=== PATIENT | female | born 1960 | race Hispanic/Latino ===

== ENCOUNTER 2017-04-01 15:12 | Outpatient (CLI) | payer OTHER ==
--- NOTE | 2017-04-02 11:57 | MMO ---
BILATERAL SCREENING MAMMOGRAM: History: Screening. Comparison: 2015, 2014 FINDINGS: This study is interpreted with the assistance of computer aided detection. There are scattered fibroglandular densities. Benign appearing masses in both breasts, similar. Benign calcifications in right breast. No suspicious mass, architectural distortion, or suspicious ca lcifications. IMPRESSION: BIRADS 2 - benign findings. Continued annual mammographic screening recommended. POS: [facility]
== END 2017-04-01 15:13 | disposition home or self-care (01) ==
LOC: SCSMAMMO 15:12
PROVIDERS: ATTEND Obstetrics & Gynecology
DX: Z12.31 Encounter for screening mammogram for malignant neoplasm of breast (principal)
CPT/HCPCS: 77067

== ENCOUNTER 2018-04-27 16:13 | Outpatient (CLI) | payer OTHER | END 2018-04-27 16:14 | disposition home or self-care (01) | LOC: BICMAMMO 16:13 | PROVIDERS: ATTEND Obstetrics & Gynecology | DX: Z12.31 Encounter for screening mammogram for malignant neoplasm of breast (principal) | CPT/HCPCS: 77063; 77067 ==

== ENCOUNTER 2019-03-30 15:00 | Inpatient (IN) | payer OTHER ==
[2019-03-30] MEDS: Morphine 2 MG/ML SYRINGE SLOW IVP PRN ×4 (16:46→22:45)
[2019-03-30 16:52] VITALS: BMI 45.1
--- NOTE | 2019-03-30 18:22 | PRG ---
DATE OF SERVICE: 03/30/2019 This is a 30-minute initial visit note, in which 30 minutes were spent reviewing the imaging record, evaluation, examination of the patient, and formulation of plan. Greater than 50% time was spent in counseling on Nancy Liu. Ms. Liu is a 58-year-old woman with protein-C deficiency, consistent with thrombophilia, she is managed by Dr. Gaffney. She presented with increasing headache over the last week and head CT demonstrates multi-aged subdural hematomas bilaterally with no worrisome mass effect, but also scattered areas of subarachnoid hemorrhage. I would like to get a CT angiogram in the morning. INR is 1.2, which tells me that she perhaps had missed her Coumadin in the last couple days. I would like to make sure she does not have any type of venous thrombosis. This is not likely as that typically presents with venous hypertension and intracerebral flame shaped hemorrhage, which does not appear to be the case here necessarily. We do have to be cautious initiating her Coumadin again and I would prefer to hold off for a week or two and then, perhaps gently escalate her anticoagulation if we need to. We will see what the CTA tomorrow shows. Currently, she is neurologically intact with headache. We will follow up tomorrow. If she is doing well, we will get her to a regular room. Job ID: [id number]
[2019-03-30] MEDS ORDERED: Acetaminophen 325 MG TAB PO PRN (19:14)
[2019-03-30] MEDS ORDERED: Communication Order-Pharmacy FS PRN (19:30)
[2019-03-30] MEDS: Sodium Chloride 0.9% 1,000 ML IV SCH (20:41)
[2019-03-31] MEDS: Morphine 2 MG/ML SYRINGE SLOW IVP PRN ×7 (04:47→23:59)
[2019-03-31] MEDS: Ondansetron PF 4 MG/2 ML Vial IVP PRN ×2 (04:49→21:29)
[2019-03-31] MEDS: HYDROcodone/Acetaminophen 5/325 mg Tablet PO PRN ×3 (05:43→21:07)
[2019-03-31 06:37] LABS: #Eosinphils 0.1 thou/uL (0.0-0.7); #Lymphocytes 1.3 thou/uL (1.20-3.40); #Monocytes 0.4 thou/uL (0.11-0.59); #Neutrophils 4.3 thou/uL (1.40-6.50); %Basophils 0.5 % (0.0-1.0); %Eosinophils 0.9 % (0.0-10.0); %Monocytes 6.9 % (0.0-10.0); %Neutrophils 70.7 % (42.0-75.0); Hemoglobin 12.9 g/dL (12.0-16.0); Mean Corpuscular HGB CONC 33.4 g/dL (32.0-36.0); Mean Corpuscular Hemoglobin 29.6 pg (27.0-31.0); Mean Corpuscular Volume 88.7 fL (78.0-98.0); Mean Platelet Volume 7.8 fL (7.4-10.4); Platelet Count 201 thou/uL (130-400); RBC Distribution Width 13.3 % (11.5-14.5); Red Blood Cell (RBC) Count 4.35 mill/uL (4.20-5.40); White Blood Cell (WBC) Count 6.1 thou/uL (4.8-10.8)
[2019-03-31 06:41] LABS: INR-International Normal Ratio 1.4; PTT 29.1 SEC (22.9-36.1); Prothrombin Time 16.8 SEC (12.0-14.7)
[2019-03-31 06:49] LABS: Anion Gap 11 mmol/L (10-20); BUN (Urea Nitrogen) 8 mg/dL (9.8-20.1); Calc. Creatinine Clearance 200 mL/min (70-130); Calcium 8.2 mg/dL (7.8-10.44); Carbon Dioxide 26 mmol/L (22-29); Chloride 103 mmol/L (98-107); Estimated GFR-MDRD Greater than 90; Glucose 250 mg/dL (70-105); Potassium 3.8 mmol/L (3.5-5.1); Sodium 136 mmol/L (136-145)
[2019-03-31] MEDS: Sodium Chloride 0.9% 1,000 ML IV SCH ×2 (07:32→21:08)
--- NOTE | 2019-03-31 09:12 | CT ---
CTA OF THE HEAD WITHOUT AND WITH CONTRAST: HISTORY: Bilateral subdural hematomas. TECHNIQUE: Multiple contiguous axial images were obtained in a CTA of the head without and with contrast. Three -D sagittal and coronal MIP reformats were performed. FINDINGS: There are bilateral low-density fluid collections along the frontoparietal convexities near the verte x which likely represent subdural hygromas. There is a hyperdense region on the right measuring 5 mm in size which may represent an acute on chronic subdural hematoma. There is no evidence of hydrocep halus or interventricular hemorrhage. No downward herniation or midline shift is seen. No large con fluent infarction is seen. The calvarium and overlying soft tissues are unremarkable. The visualized paranasal sinuses and mast oid air cells are well aerated. The bilateral intracranial internal carotid arteries are normal in caliber without filling defects. These branch into normal-appearing anterior and middle cerebral arteries. There is no evidence of an eurysmal dilatation, focal stenosis, or occlusion in the anterior circulation. The vertebral arteries form a normal-appearing basilar artery. The posterior cerebral arteries and c erebellar arteries are patent, but there is no evidence of focal stenosis, occlusion, or aneurysmal d ilatation of the posterior circulation. The deep venous structures appear patent without evidence of thrombosis. IMPRESSION: 1. No evidence of intracranial vascular abnormality. 2. Bilateral subdural hygromas. There is a small area of hyperdensity on the right which could repr esent an acute on chronic subdural hematoma. POS: [facility]
--- NOTE | 2019-03-31 11:35 | PRG ---
DATE OF SERVICE: 03/31/2019 This is a 15 minutes subsequent visit note, in which 15 minutes were spent reviewing the imaging record, evaluation and examination of the patient, formulation of plan. Greater than 50% time was spent in counseling on Ms. Liu. Ms. Liu is much more pleasant this morning than evidently overnight where she was very confused and somewhat combative. She is in pleasant spirits and our head CT is stable. She is on aspirin and as such we will move her to the floor and begin mobilizing her. I will arrange follow up with a repeat head CT in 1 month in my clinic with her off blood thinners. Job ID: [id number]
[2019-03-31] MEDS ORDERED: traMADol HCl 50 MG TAB PO PRN (13:39)
--- NOTE | 2019-03-31 14:23 | PRG ---
DATE OF SERVICE: 03/31/2019 This is Dom Corcoran PA-C dictating a report for Baltazar Malin MD. A 25-minute subsequent patient evaluation, of which greater than 50% of the exam was spent counseling and coordinating the patient's care, remainder of the exam was spent in review of the patient's medical records and review of appropriate imaging studies. Ms. Liu is hospital day #1, having bilateral chronic subdural hematoma secondary to long-term warfarin use. The patient today continues to have headache. Neurologically, she remains at her baseline. She is oriented to person, place, and time and is able to tell me the definition of a pen. She moves all extremities equally. Review of patient's CTA shows stability of her bilateral chronic subdural hematomas and no indication of any underlying vascular abnormality. At this time, the patient is stable for transfer out of the ICU. We will work on headache management. She likely will be ready for discharge in the next day or two. We will continue to keep her blood pressure systolic under 150 on holding her Coumadin. She takes this for protein C deficiency. Please call with any changes in patient's neurologic status. Otherwise, we will follow. Job ID: [id number]
[2019-04-01] MEDS: HYDROcodone/Acetaminophen 5/325 mg Tablet PO PRN ×3 (03:12→21:39)
[2019-04-01] MEDS: Morphine 2 MG/ML SYRINGE SLOW IVP PRN ×5 (08:45→20:32)
[2019-04-01] MEDS: Ondansetron PF 4 MG/2 ML Vial IVP PRN ×2 (08:45→21:58)
--- NOTE | 2019-04-01 09:33 | CON ---
DATE OF CONSULTATION: 04/01/2019 CONSULTING PHYSICIAN: Dr. Malin (we were contacted by the patient's ). REASON FOR CONSULTATION: Protein C deficiency. HISTORY OF PRESENT ILLNESS: This is a 58-year-old female, who was diagnosed with protein C deficiency about 20 years ago after clotting off a large portion of her small bowel requiring resection. She has been admitted at this time for altered mental status related to subdural hematoma. This did not require evacuation, but she has been advised to stay off Coumadin for at least 2 weeks. Her was concerned the length the time of this require being off Coumadin. PAST MEDICAL HISTORY: Protein C deficiency. PAST SURGICAL HISTORY: Small bowel resection. ALLERGIES: NONE. MEDICATIONS: She takes Coumadin at home. SOCIAL HISTORY: She is an educating nurse. She does not smoke, consume alcohol, or use illicit drugs. REVIEW OF SYSTEMS: Twelve-point review of systems is otherwise negative. PHYSICAL EXAMINATION: VITAL SIGNS: Temperature 98.1, pulse 69, blood pressure 110/49, and O2 saturation 97%. GENERAL: She is awake, alert, in no distress. HEENT: Unremarkable. NECK: No adenopathy or JVD. CHEST: Clear. CARDIAC: S1 and S2. Regular. ABDOMEN: Soft and nontender. EXTREMITIES: No clubbing, cyanosis, or edema. ASSESSMENT: 1. Protein C deficiency. 2. Subdural hematoma. PLAN: Right now anticoagulation is contraindicated and the only alternative measures are the SCDs and early ambulation. Hopefully in a couple of weeks, she can restart the warfarin. Job ID: [id number]
[2019-04-01] MEDS: Sodium Chloride 0.9% 1,000 ML IV SCH (11:03)
--- NOTE | 2019-04-01 15:40 | PRG ---
DATE OF SERVICE: 04/01/2019 This is Dom Corcoran PA-C dictating a report for Baltazar Malin MD. This is a 15-minute subsequent patient evaluation of which greater than 50% of the exam was spent counseling and coordinating the patient's care, remainder of the exam was spent reviewing patient's medical records and formulation of treatment plan. Ms. Liu is hospital day #2, having sustained chronic subdural hematomas bilaterally. The patient is on Coumadin secondary to protein C deficiency. She continues with headache, though she is able to the eat. She has occasional nausea. Headaches are improved today. She follows commands equally in all extremities and is neurologically intact and oriented to person, place, and time. Her hope is to discharge the patient home tomorrow and we will work on setting up an outpatient followup with a noncontrast head CT in two weeks. In the interim, the patient will need to be off Coumadin. Please call with any changes in patient's neurologic status. Otherwise, we will follow up tomorrow. Job ID: [id number]
[2019-04-02] MEDS: Morphine 2 MG/ML SYRINGE SLOW IVP PRN (00:15)
[2019-04-02] MEDS: HYDROcodone/Acetaminophen 5/325 mg Tablet PO PRN (08:32)
--- NOTE | 2019-04-02 10:09 | PRG ---
DATE OF SERVICE: 04/02/2019 Ms. Liu really has no complaints this morning. I have let the nursing team know I would be fine with her going home. Dr. Castro is seeing her as well for her thrombophilia. We will need to be off anticoagulation for the next 2 weeks to allow her acute on chronic subdural hematoma to normalize. I will see her in my clinic with a repeat head CT. She will be dismissed. Job ID: [id number]
[2019-04-02 11:38] VITALS: TEMP 99.1
[2019-04-02 13:41] VITALS: BP 133/76
--- NOTE | 2019-04-05 01:05 | PQF ---
BOBBY RODRIGUEZ JASON MD [id number] [address] [place] [address] [id number] CLINICAL DOCUMENTATION CLARIFICATION FORM: POST DISCHARGE Addendum to original discharge summary date: ____ Late entry note date: __ DATE: 04/05/19 ATTN: Baltazar Romero Please exercise your independent, professional judgment in responding to the clarification form. Clinical indicators are provided on the bottom of this form for your review Please check appropriate box(s): [ ] Acute Toxic Encephalopathy [ ] Acute Metabolic Encephalopathy [ ] Transient Alteration of Awareness [ ] Other diagnosis [ ] Unable to determine In addition, please specify: Present on Admission (POA): [ ] Yes [ ] No [ ] Unable to determine For continuity of documentation, please document condition throughout progress notes and discharge summary. Thank You. CLINICAL INDICATORS - SIGNS / SYMPTOMS / LABS Nursing Assessment 03/30 GCS 15 PN p1 03/30 Dr Malin She presented with increasing headache over the last week and head CT demonstrates multi-aged subdural hematomas bilaterally PN p1 02/28 Dr Malin more pleasant this morning than evidently overnight where she was very confused and somewhat combative Consult p1 Dr Castro She has been admitted at this time for altered mental status related to subdural hematoma RISK FACTORS PN p1 03/30 58 year-old woman PN p1 03/30 Protein-C Deficiency PN p1 03/30 Taking Coumadin at home TREATMENTS: PN p1 03/30 Neuro Monitoring PN p1 03/30 Hold Coumadin (This form is maintained as a part of the permanent medical record) 2014 [employer]. All Rights Reserved [email or web address] [not provided] MTDD
== END 2019-04-02 12:43 | disposition home or self-care (01) | DRG 65 ==
LOC: EEVIPCON 15:00 → CCU 15:00 → 2SE 04-01 14:23
PROVIDERS: ADMIT Surgery; ATTEND Surgery
DX: I62.03 Nontraumatic chronic subdural hemorrhage (principal); D68.32 Hemorrhagic disorder due to extrinsic circulating anticoagulants; D68.59 Other primary thrombophilia; T45.515A Adverse effect of anticoagulants, initial encounter; I60.9 Nontraumatic subarachnoid hemorrhage, unspecified; R40.2413 Glasgow coma scale score 13-15, at hospital admission; Z90.49 Acquired absence of other specified parts of digestive tract; Z79.01 Long term (current) use of anticoagulants
CPT/HCPCS: 36415; 36416; 70496; 80048; 85025; 85610; 85730; J2270; J2405

== ENCOUNTER 2019-04-04 10:55 | Inpatient (IN) | payer OTHER ==
[2019-04-04 11:31] LABS: #Eosinphils 0.1 thou/uL (0.0-0.7); #Lymphocytes 1.7 thou/uL (1.20-3.40); #Monocytes 0.5 thou/uL (0.11-0.59); #Neutrophils 5.5 thou/uL (1.40-6.50); %Basophils 0.5 % (0.0-1.0); %Eosinophils 1.1 % (0.0-10.0); %Lymphocytes 21.6 % (21.0-51.0); %Monocytes 6.3 % (0.0-10.0); %Neutrophils 70.5 % (42.0-75.0); Hemoglobin 14.2 g/dL (12.0-16.0); Mean Corpuscular HGB CONC 34.4 g/dL (32.0-36.0); Mean Corpuscular Hemoglobin 29.6 pg (27.0-31.0); Mean Platelet Volume 7.8 fL (7.4-10.4); Platelet Count 229 thou/uL (130-400); RBC Distribution Width 13.6 % (11.5-14.5); Red Blood Cell (RBC) Count 4.81 mill/uL (4.20-5.40); White Blood Cell (WBC) Count 7.8 thou/uL (4.8-10.8)
[2019-04-04 11:39] LABS: INR-International Normal Ratio 1.1; PTT 26.7 SEC (22.9-36.1); Prothrombin Time 13.8 SEC (12.0-14.7)
[2019-04-04 11:42] LABS: Acetaminophen Less than 6.0 mcg/mL (10.0-30.0); Alcohol Less than 10 mg/dL (Less than 10); Salicylate Less than 8.0 mg/dL (15.0-30.0)
[2019-04-04 11:43] LABS: ALT (SGPT) 65 U/L (8-55); AST (SGOT) 53 U/L (5-34); Albumin 4.1 g/dL (3.5-5.0); Alkaline Phosphatase 106 U/L (40-110); Anion Gap 11 mmol/L (10-20); BUN (Urea Nitrogen) 10 mg/dL (9.8-20.1); Bilirubin, Total 0.9 mg/dL (0.2-1.2); Calc. Creatinine Clearance 0 mL/min (70-130); Calcium 8.8 mg/dL (7.8-10.44); Carbon Dioxide 29 mmol/L (22-29); Chloride 100 mmol/L (98-107); Estimated GFR-MDRD 90; Globulin 2.8 g/dL (2.4-3.5); Glucose 225 mg/dL (70-105); Potassium 3.3 mmol/L (3.5-5.1); Protein, Total 6.9 g/dL (6.0-8.3); Sodium 137 mmol/L (136-145)
--- NOTE | 2019-04-04 12:12 | CT ---
CT BRAIN WITHOUT CONTRAST: HISTORY: Altered mental status. COMPARISON: 03/31/2019 FINDINGS: Bilateral subdural hygromas are again seen, predominantly in the frontoparietal convexities. The prev iously noted tiny, 5 mm hyperdensity noted on the previous study, on the right, has resolved in the i nterim. New areas of increased attenuation are seen within the subdural hygromas bilaterally, includi ng the right temporal convexity and bilateral parietal convexities. There is a 7 mm midline shift to the left. The ventricular size is stable. The bony calvarium is inta ct. IMPRESSION: Interval development of new acute subdural hematomas bilaterally, in the setting of previously noted bilateral subdural hygromas with 7 mm midline shift to the left. Discussed over the telephone with ER physician, Dr. Davidson Posadas, at 11:48 a.m. AKBAR PEREZ POS: [facility]
[2019-04-04] MEDS ORDERED: HYDROcodone/Acetaminophen 7.5/325 mg Tablet PO PRN (13:13)
[2019-04-04] MEDS ORDERED: Ondansetron PF 4 MG/2 ML Vial IVP PRN (13:13)
[2019-04-04] MEDS ORDERED: Senokot S 8.6-50 MG TAB PO PRN (13:13)
[2019-04-04] MEDS ORDERED: Calcium Carbonate 500 MG ChewTAB PO PRN (13:13)
[2019-04-04] MEDS ORDERED: Bisacodyl 5 MG TAB PO PRN (13:13)
[2019-04-04] MEDS ORDERED: HYDROcodone/Acetaminophen 5/325 mg Tablet PO PRN (13:13)
[2019-04-04] MEDS ORDERED: Loperamide HCl 2 MG CAP PO PRN (13:13)
[2019-04-04] MEDS ORDERED: Ondansetron ODT 4 MG TAB PO PRN (13:13)
[2019-04-04] MEDS ORDERED: Melatonin 3 MG TAB PO PRN (13:17)
[2019-04-04] MEDS ORDERED: Docusate 100 MG CAP PO PRN (13:17)
[2019-04-04] MEDS ORDERED: Benzonatate 100 MG CAP PO PRN (13:17)
[2019-04-04] MEDS ORDERED: Labetalol HCl 100 MG/20 ML VIAL SLOW IVP PRN (13:17)
[2019-04-04] MEDS ORDERED: diphenhydrAMINE 25 MG CAP PO PRN (13:17)
[2019-04-04] MEDS ORDERED: Dextrose 50% Abboject 50 ML SYRINGE SLOW IVP PRN (16:01)
[2019-04-04] MEDS ORDERED: Dextrose 5% in Water 1,000 ML IV PRN (16:01)
[2019-04-04 16:07] VITALS: BMI 43.5
[2019-04-04] MEDS: Acetaminophen 325 MG TAB PO PRN ×2 (16:45→21:50)
--- NOTE | 2019-04-04 16:50 | MRI ---
MR VENOGRAPHY OF BRAIN: Date: 04/04/19 HISTORY: Venous infarctions, subdural hemorrhage. FINDINGS/IMPRESSION: There is no evidence of dural thrombosis. This exam was interpreted in consultation with Dr. Constantino Gavin, who concurs. POS: [facility]
[2019-04-04 17:06] LABS: Hemoglobin A1c 9.7 % (4.0-6.0)
--- NOTE | 2019-04-04 17:25 | PDOC.HHP ---
Hospitalist HPI - History of Present Illness AMS History of Present Illness: Very pleasant 58-year-old with past medical history of protein seed efficiency who is on chronic Coumadin therapy and recently diagnosed with subdural hemorrhage presents with altered mental status. Patient was recently discharged from hospital with known subdural hematoma and was cleared by neurosurgery. When patient was at home she was acting not herself with confusion she did not know who she was, she did not know the year, she did not know the situation and her who is taking care of her asked her what is wrong with her and she was confused to the point where she thought she was having episode from 20 years ago. There has been no new trauma, no falls, no spasticity of the arms or legs, no tongue biting, no focal motor weaknesses, no palpitations, no chest pain, no shortness of breath, and review systems is otherwise benign. Patient has remained off Coumadin as directed by neurosurgeon from prior admission. Upon arrival to acute care hospital patient symptoms have resolved. Patient is currently alert to self, location, year, and situation. Repeat CT scan of the head demonstrates acute on chronic subdural hematoma which has changed from prior study, please see full radiographic report for full details. Neurosurgery has been consult it for further recommendations. Patient admitted to intermediate medical care floor for close monitoring. Hospitalist ROS - Review of Systems All other systems reviewed; all pertinent +/- noted in HPI/Subj - Medication Medications: Active Medications Generic Name Dose Route Start Last Admin Trade Name Freq PRN Reason Stop Dose Admin Acetaminophen 650 mg 04/04/19 13:13 04/04/19 16:45 Tylenol PO 650 mg Q4H PRN Administration Headache/Fever/Mild Pain (1-3) Hospitalist History - Past Medical History Source: patient, family Heme/Onc: reports: Other (Protein C deficiency chronically on coumadin) - Past Surgical History Past Surgical History: reports: Other (Bowel resection) - Family History Family History: reports: hypertension - Social History Smoking Status: Unknown if ever smoked Alcohol: reports: None Drugs: reports: none Living Situation: With Family Domestic Violence: Negative Activity level: independent ambulation - Exam General Appearance: NAD, awake alert Eye: PERRL, anicteric sclera ENT: normocephalic atraumatic, no oropharyngeal lesions, moist mucosa Neck: supple, symmetric, no lymphadenopathy Heart: RRR, no murmur, no gallops, no rubs Respiratory: CTAB, no wheezes, no rales, no ronchi, normal chest expansion, no tachypnea Gastrointestinal: soft, non-tender, non-distended, no guarding, no rigidity Gastrointestinal - other findings: Elevated BMI Extremities: 1+ LE edema Skin: no lesions, no rashes Neurological: cranial nerve grossly intact, normal sensation to touch, no weakness, no focal deficits Musculoskeletal: normal tone, normal strength Psychiatric: normal affect, normal behavior, A&O x 3 Hospitalist Results - Labs Result Diagrams: 04/04/19 11:15 04/04/19 11:15 Lab results: WBC 7.8 thou/uL (4.8-10.8) 04/04/19 11:15 Hgb 14.2 g/dL (12.0-16.0) 04/04/19 11:15 Hct 41.3 % (36.0-47.0) 04/04/19 11:15 MCV 86.0 fL (78.0-98.0) 04/04/19 11:15 Plt Count 229 thou/uL (130-400) 04/04/19 11:15 Neutrophils % 70.5 % (42.0-75.0) 04/04/19 11:15 Sodium 137 mmol/L (136-145) 04/04/19 11:15 Potassium 3.3 mmol/L (3.5-5.1) L 04/04/19 11:15 Chloride 100 mmol/L (98-107) 04/04/19 11:15 Carbon Dioxide 29 mmol/L (22-29) 04/04/19 11:15 BUN 10 mg/dL (9.8-20.1) 04/04/19 11:15 Creatinine 0.68 mg/dL (0.6-1.1) 04/04/19 11:15 Glucose 225 mg/dL (70-105) H 04/04/19 11:15 Calcium 8.8 mg/dL (7.8-10.44) 04/04/19 11:15 Total Bilirubin 0.9 mg/dL (0.2-1.2) 04/04/19 11:15 AST 53 U/L (5-34) H 04/04/19 11:15 ALT 65 U/L (8-55) H 04/04/19 11:15 Alkaline Phosphatase 106 U/L (40-110) 04/04/19 11:15 Serum Total Protein 6.9 g/dL (6.0-8.3) 04/04/19 11:15 Albumin 4.1 g/dL (3.5-5.0) 04/04/19 11:15 - Radiology Interpretation CT scan - head Status: image reviewed by wi Hospitalist H&P A/P - Problem (1) Acute on chronic intracranial subdural hematoma Code(s): I62.01 - NONTRAUMATIC ACUTE SUBDURAL HEMORRHAGE; I62.03 - NONTRAUMATIC CHRONIC SUBDURAL HEMORRHAGE Status: Acute (2) AMS (altered mental status) Code(s): R41.82 - ALTERED MENTAL STATUS, UNSPECIFIED Status: Acute (3) Protein C deficiency Code(s): D68.59 - OTHER PRIMARY THROMBOPHILIA Status: Acute (4) Obesity Code(s): E66.9 - OBESITY, UNSPECIFIED Status: Acute (5) Elevated blood sugar Code(s): R73.9 - HYPERGLYCEMIA, UNSPECIFIED Status: Acute - Plan Plan: Plan: Admit to intermediate medical care floor neurosurgery consultation, recommendations appreciated neurology consultation, recommendations appreciated pulmonology consultation, recommendations appreciated CT scan of the brain noted repeat neurologic imaging is appropriate by specialists not on antiepileptic therapy at this time, defer to neurology and neurosurgery no seizure activity noted or reported in history no Coumadin, anticoagulation, antiplatelet therapy, or NSAIDs in the setting of acute on chronic subdural hematoma patient with elevated blood sugars though she does not follow up with doctors and does not have routine screening labs in several years, A1c to further evaluate for the presence of diabetes insulin sliding-scale coverage for hyperglycemia lipid panel elevated LFTs, the patient does not have any abdominal pain. Possible fatty liver disease blood pressure control blood sugar control G.I. prophylaxis DVT prophylaxis SCDs no chemical and coagulation the setting of acute on chronic subdural hematoma
[2019-04-04] MEDS: HumaLOG 300 UNITS/3 ML VIAL SC PRN ×2 (17:36→20:11)
[2019-04-04 19:57] LABS: Amphetamine Not Detected (NotDetected); Barbiturates Screen Not Detected (NotDetected); Benzodiazepine Screen Not Detected (NotDetected); Cocaine Metabolite Screen Not Detected (NotDetected); Medtox Control Line Valid? VALID (VALID); Medtox Reader # READER 4; Methadone Not Detected (NotDetected); Methamphetamine Not Detected (NotDetected); Opiate Screen Detected (NotDetected); Oxycodone Screen Not Detected (NotDetected); Phencyclidine (PCP) Not Detected (NotDetected); THC/Cannabinoid Screen Not Detected (NotDetected); Tricyclic Screen Not Detected (NotDetected)
[2019-04-04] MEDS: levETIRAcetam 500 mg/5 ml Oral Solution PO SCH (20:11)
[2019-04-04] MEDS: Famotidine/PF 20 mg/2ml Vial SLOW IVP SCH (20:11)
--- NOTE | 2019-04-04 21:35 | CON ---
DATE OF CONSULTATION: REASON FOR EVALUATION: Subdural hemorrhage. HISTORY OF PRESENT ILLNESS: Nancy Liu is a 58-year-old woman discharge recently from [facility] with newly found subdural hematoma, bilateral, without significant mass effect. She is discharged home Friday, 2 days ago. Friday morning, she asked for oral pain medication and the hydrocodone alleviated the pain, but altered her mental status. That mental status alteration continued even until this morning long after the medication was given. When Ms. Liu' was speaking with her this morning, she was drifting off to sleep constantly. She could not keep her eyes open. She did not make any sense when she was talking and he brought her to the emergency department. CT examination of brain showed the presence of bilateral subdural hematoma with some [id number] blood. This looked similar to but slightly larger than the fluid collections on the CT angiogram done on the 31 of March. She has remained off her blood thinning medication. There has been no head trauma either before the original diagnosis or before this readmission. I am seeing Ms. Liu in her hospital bed. 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. She complains of slight headache, but she feels better than she did this morning. She is more awake. She is alert and she is answering questions appropriately. She does not feel that she has any weakness or difficulty with speech. She does not report any double vision. PAST MEDICAL HISTORY: Protein C deficiency with 1 ischemic event to the bowel requiring resection. PAST SURGICAL HISTORY: Exploratory laparotomy, lower bowel resection. ALLERGIES: NO KNOWN DRUG ALLERGIES. MEDICATION: 1. Warfarin (currently on hold). 2. Hydrocodone/acetaminophen, recently given for head pain. SOCIAL HISTORY: Ms. Liu is . Her is here with her at the bedside. She denies illicit drug use. 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 FAMILY HISTORY: Family history reported of anesthesia complication. REVIEW OF SYMPTOMS: Otherwise negative. PHYSICAL EXAMINATION: VITAL SIGNS: Ms. King blood pressures in the emergency department are ranging between 120 and the 140s, her temperature was 98.1 degrees orally. Her pulse was in the 50s. She rests comfortably in the intermediate care unit and her bed. Her eyes are open. She is participating in our conversation. There is no evidence of dysphasia. NEUROLOGIC: Cranial nerves I did not see any deficits. Motor examination, there is no pronator drift. There is no lateralizing motor deficit that I can appreciate. Sensory examination, there is no neglect. There is no extinction to double simultaneous stimulation. Reflexes. There is no clonus. IMAGING FINDINGS AND TEST RESULTS: An MR venogram was done showing an atretic or occluded right transverse sinus. A CT scan of the brain was reviewed above the bilateral subdural fluid collections, they are slightly larger, 1-2 mm on each side, and they were on previous CT angiography on March 31, 2019. IMPRESSION: 1. Bilateral subdural hematoma. 2. Protein C deficiency. 3. Possible transverse sinus thrombosis. 4. It may be the subdural hematomas there as a result of increased venous pressure. I am going to put her head of bed up overnight. We will keep her hydrated. I am going to repeat a CT scan in the morning. Her neurological function is much better than it was this morning. I am going to add Keppra 250 mg p.o. b.i.d. to ensure there is no focal seizure activity affecting her neurological function. 5. If we do see increase in the subdural fluid collections going forward, I would recommend an operative intervention involving jonnie holes and bilateral drain placement. 6. I would not restart Coumadin, but I would consider using some unfractionated heparin that could be reversed or Lovenox during this hospitalization. If we use Lovenox, it should not be given within 12-24 hours of surgical intervention, however. For now we will hold off, but we may need to start this tomorrow, if the scan is stable and she is feeling better. 7. We are going to follow up with a CT scan in the morning and I have reviewed all my thinking with both Ms. Liu and her . Job ID: [id number]
[2019-04-05 04:06] LABS: #Basophils 0.1 thou/uL (0.0-0.2); #Eosinphils 0.1 thou/uL (0.0-0.7); #Lymphocytes 1.8 thou/uL (1.20-3.40); #Monocytes 0.4 thou/uL (0.11-0.59); #Neutrophils 5.5 thou/uL (1.40-6.50); %Basophils 1.5 % (0.0-1.0); %Eosinophils 0.9 % (0.0-10.0); %Lymphocytes 22.3 % (21.0-51.0); %Monocytes 5.2 % (0.0-10.0); %Neutrophils 70.1 % (42.0-75.0); Hemoglobin 13.5 g/dL (12.0-16.0); Mean Corpuscular HGB CONC 33.7 g/dL (32.0-36.0); Mean Corpuscular Hemoglobin 29.4 pg (27.0-31.0); Mean Corpuscular Volume 87.4 fL (78.0-98.0); Mean Platelet Volume 8.2 fL (7.4-10.4); Platelet Count 213 thou/uL (130-400); RBC Distribution Width 13.8 % (11.5-14.5); White Blood Cell (WBC) Count 7.9 thou/uL (4.8-10.8)
[2019-04-05 04:29] LABS: Anion Gap 12 mmol/L (10-20); BUN (Urea Nitrogen) 10 mg/dL (9.8-20.1); Calc. Creatinine Clearance 187 mL/min (70-130); Calcium 8.7 mg/dL (7.8-10.44); Carbon Dioxide 25 mmol/L (22-29); Cardiac Risk 4.6 (Less than 4.5); Chloride 104 mmol/L (98-107); Cholesterol 212 mg/dl (< 200 Desired); Estimated GFR-MDRD Greater than 90; Glucose 238 mg/dL (70-105); HDL Cholesterol 46 mg/dL (>60 Neg Risk); LDL Cholesterol, Calculated 147 mg/dL; Potassium 3.7 mmol/L (3.5-5.1); Sodium 137 mmol/L (136-145); Triglycerides 97 mg/dL (Less than 150)
--- NOTE | 2019-04-05 07:17 | PRG ---
DATE OF SERVICE: 04/05/2019 I saw Ms. Liu in the intermediate care unit this morning. None of the continuous vital sign monitors have been attached. Ms. Liu went down for a CT this morning. Her states she has been a little harder to wake up in the early hours of the morning and that the nurse corroborates that history. Overnight, I do not see any fevers recorded among the electronic vital signs. Her blood pressures have ranged between the 130s and 160s. Her head of bed is up 45 degrees. When asked Ms. Liu to wake, she does so. She says a phrase or two and falls back asleep. She does hold her arms up for me. She may have a little bit of drift or lack of attention to keeping her arms up. She can feel noxious stimulation on all sides. I reviewed the CT this morning and it is stable from yesterday. Both of the CT scans show increase in subdural fluid compared to previous scans during her prior admission. An MR venogram was read by Radiology as clear of any clot. However, the right transverse sinus must be atretic or hard to visualize. I will confirm this reading with one of our neuroradiologists. Today's plan is to have Ms. Liu use an incentive spirometer, have a pulse oximeter attached to mobilize and if she does not make significant neurological improvement, I have already talked to her and her about jonnie hole evacuation this afternoon. If it is necessary, we will proceed. We will keep her n.p.o. I will get an ultrasound of the lower extremities as a baseline given her protein-C deficiency. Job ID: [id number]
[2019-04-05] MEDS: Sodium Chloride 0.9% 1,000 ML IV SCH ×2 (07:30→21:42)
--- NOTE | 2019-04-05 08:27 | CT ---
PRELIMINARY REPORT/[facility]/EMERGENCY AFTER HOURS PROCEDURE: EXAM: CT Head Without Intravenous Contrast. CLINICAL HISTORY: [facility] F/U TECHNIQUE: Axial computed tomography images of the head/brain without intravenous contrast. 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 There is a acute to subacute subdural h ematoma in bilateral hemisphere with some acute component, enlarged compared to prior examination. Th ere is an acute bleed along the falx cerebri, tentorium, and the bilateral frontal region. There is a midline shift to the left side of about 7 mm, increased compared to prior examination. VENTRICLES: No hydrocephalus. ORBITS: The orbits are unremarkable. SINUSES AND MASTOIDS: The paranasal sinuses and mastoid air cells are clear. SOFT TISSUES: No significant facial or scalp soft tissue swelling evident. No radiopaque foreign body is seen. BONES: No acute skull fracture. IMPRESSION: 1. The examination is limited due to the motion artifact. There is a acute to subacute subdural hemat moon in bilateral hemisphere with some acute component, enlarged compared to prior examination. There is small amount acute bleed along the falx cerebri, tentorium, and the bilateral frontal region. 2. There is a midline shift to the left side of about 7 mm, increased compared to prior examination. ELECTRONICALLY SIGNED BY: Jania Jamison MD Apr 05, 2019 5:47:59 AM SANFORIZING MACHINE OPERATOR This report is intended for review by the ordering physician only, in accordance of law. If you recei ve this report in error, please call [facility] at [phone]. FINAL REPORT HEAD CT WITHOUT CONTRAST: Date: 04/05/2019 COMPARISON: 04/04/2019. HISTORY: Subdural hematoma. FINDINGS: Incomplete evaluation due to exclusion of the vertex. Redemonstration of extra-axial hematoma. There is a persistent right to left subfalcine herniation. There is persistent effacement of the suprasella r cistern, as well as the ambient cisterns. IMPRESSION: This report is in agreement with the initial report by [facility]. Redemonstration of intracran ial hemorrhage along with right to left subfalcine herniation. POS: [facility]
[2019-04-05] MEDS: levETIRAcetam 500 mg/5 ml Oral Solution PO SCH (09:01)
[2019-04-05] MEDS: Lisinopril 5 MG TAB PO SCH (09:01)
[2019-04-05] MEDS: Famotidine/PF 20 mg/2ml Vial SLOW IVP SCH ×2 (09:02→21:43)
[2019-04-05] MEDS ORDERED: hydrALAZINE 20 MG/ML VIAL SLOW IVP PRN (09:16)
[2019-04-05] MEDS ORDERED: Labetalol HCl 100 MG/20 ML VIAL SLOW IVP PRN (09:18)
[2019-04-05] MEDS ORDERED: ePHEDrine/0.9% NaCl/PF SYRINGE 50 mg/10 ml ONE (09:56)
[2019-04-05] MEDS ORDERED: Dexamethasone 20 MG/5 ML VIAL ONE (09:56)
[2019-04-05] MEDS ORDERED: PROPOFOL 200 MG/20 ML VIAL ONE (09:56)
[2019-04-05] MEDS ORDERED: Ondansetron PF 4 MG/2 ML Vial ONE (09:56)
[2019-04-05] MEDS ORDERED: Rocuronium Bromide 10 MG/ML (10ML VIAL) ONE (09:56)
[2019-04-05] MEDS ORDERED: Glycopyrrolate 0.2 MG/ML 5 ML SYRINGE ONE (09:56)
[2019-04-05] MEDS ORDERED: Lidocaine 1% PF 5 ML VIAL ONE (09:56)
--- NOTE | 2019-04-05 10:06 | ULT ---
BILATERAL LOWER EXTREMITY VENOUS DUPLEX EXAM: Date: 04/05/2019 HISTORY: Bilateral lower extremity pain and swelling. FINDINGS: Real-time color Doppler evaluation of right and left lower extremity was performed from groin to calf . This includes evaluation of the common femoral, superficial and profunda femoral, saphenous, poplit eal, and posterior tibial veins. This shows patent deep venous systems bilaterally. There is normal c ompressibility and augmentation. There is no evidence of deep venous thrombosis. IMPRESSION: No evidence of deep venous thrombosis of either lower extremity. POS: [facility]
--- NOTE | 2019-04-05 10:31 | CON ---
DATE OF CONSULTATION: HISTORY OF PRESENT ILLNESS: A 58-year-old morbidly obese female of 122 kg, presented on April 04, blood pressure 140/62, pulse 55, respirations 20, saturations are 98% on room air. Apparently, there was a change in mental status with the patient becoming sleepy and lethargic. She was found to have subdural 5 days ago, released from the hospital 3 days ago. said "hard time keeping her awake", brought back, shows bilateral subdural. PAST MEDICAL HISTORY: Pertinent for a hypercoagulable state. She is on long-term anticoagulation. Takes Coumadin 6 mg a day. PAST SURGICAL HISTORY: Previous surgeries otherwise included previous lap with bowel resection. ALLERGIES: NONE. TOBACCO: None. ALCOHOL: None. SOCIAL HISTORY: She is a nurse in the hospital. PHYSICAL EXAMINATION: GENERAL: This morning, she is lethargic, but arousable. VITAL SIGNS: Blood pressure 176/84, respiratory rate 18, pulse 80. CHEST: Decreased breath sounds. No wheezing. CARDIAC: Normal S1, S2. No gallops. Soft. LABORATORY AND DIAGNOSTIC DATA: Glucose is slightly elevated. CT shows subdural. ASSESSMENT: Bilateral subdural with worsening lethargy, mental status change, protein-C deficiency, long-term anticoagulation to obesity. PLAN: I understand this bilateral subdural is planned for today. She probably will be transferred to the ICU. Continue supportive care, PT. We will follow. 70 minutes consultation, 50% direct patient care. Job ID: [id number]
[2019-04-05] MEDS ORDERED: Mannitol 12.5 GM/50 ML IV SCH (13:00)
--- NOTE | 2019-04-05 14:18 | CT ---
CT OF BRAIN PERFORMED WITHOUT CONTRAST ENHANCEMENT: HISTORY: Altered mental status. FINDINGS: Patient unresponsive. COMPARISON: CT examination done earlier today. There is continued effacement to the sulci. Ventricular system i s small. The extraaxial collections which appear to represent acute and chronic areas of subdural bl ood are similar to the previous exam. Minimal shift of midline structures to the left is also a stab le appearance. Some dilatation to the temporal horns again noted. IMPRESSION: Essentially stable exam. Bilateral subdural collections which show acute blood and also chronic low- attenuation subdural collections are stable. Effacement to the sulcal system is unchanged. POS: [facility]
--- NOTE | 2019-04-05 15:39 | PDOC.HOSPP ---
- Subjective Subjective: Seen and examined. Patient with worsening lethargy this a.m. I am upgrading her to the intensive care unit for Q1 hour no checks. Neurosurgery has been updated and following the patient closely. Repeat imaging has been ordered appropriately by neurosurgery. If the patient worsens she may require surgical intervention. Prognosis guarded. - Objective Vital Signs & Weight: Vital Signs (12 hours) Temp Pulse BP Pulse Ox 04/05/19 09:21 95 04/05/19 09:01 60 176/84 H 04/05/19 08:00 95 04/05/19 07:11 97.0 F L 04/05/19 04:00 97.9 F Weight Weight 270 lb 0.002 oz Most Recent Monitor Data Heart Rate from ECG 57 NIBP 127/65 NIBP BP-Mean 85 Respiration from ECG 10 SpO2 96 I&O: 04/04/19 04/05/19 04/06/19 06:59 06:59 06:59 Intake Total 1750 0 Output Total 450 810 Balance 1300 -810 Result Diagrams: 04/05/19 03:47 04/05/19 03:47 Additional Labs: Accuchecks 04/05/19 04/04/19 04/04/19 05:57 20:14 17:32 POC Glucose 215 H 253 H 322 H Radiology Reviewed by me: Yes Hospitalist ROS - Review of Systems All other systems reviewed; all pertinent +/- noted in HPI/Subj - Medication Medications: Active Medications Generic Name Dose Route Start Last Admin Trade Name Freq PRN Reason Stop Dose Admin Acetaminophen 650 mg 04/04/19 13:13 04/04/19 21:50 Tylenol PO 650 mg Q4H PRN Administration Headache/Fever/Mild Pain (1-3) Famotidine 20 mg 04/04/19 21:00 04/05/19 09:02 Pepcid SLOW IVP 20 mg Q12HR JAKE Administration Sodium Chloride 1,000 mls @ 90 mls/hr 04/05/19 07:15 04/05/19 07:30 Normal Saline 0.9% IV 1,000 mls .Q11H7M JAKE Administration Insulin Human Lispro 0 units 04/04/19 16:01 04/04/19 17:36 Humalog SC 5 unit .MILD SLIDING SCALE PRN Administration Mild Correctional Scale Insulin Human Lispro 0 units 04/04/19 16:01 04/04/19 20:11 Humalog SC 3 unit .BEDTIME SLIDING SC PRN Administration Bedtime Correctional Scale Lisinopril 5 mg 04/05/19 09:00 04/05/19 09:01 Zestril PO 5 mg DAILY JAKE Administration Mannitol 30 gm 04/05/19 13:00 04/05/19 13:21 Mannitol IV 04/05/19 16:00 30 gm NOW JAKE Administration - Exam General Appearance: NAD Eye: PERRL, anicteric sclera ENT: normocephalic atraumatic, moist mucosa Neck: supple, symmetric, no lymphadenopathy Heart: no murmur, no gallops, no rubs Respiratory: CTAB, no wheezes, no rales, no ronchi, normal chest expansion, no tachypnea Gastrointestinal: soft, non-tender, non-distended, no guarding, no rigidity Extremities: no clubbing, no edema Skin: no lesions, no rashes Neurological: cranial nerve grossly intact, no focal deficits Neurological - other findings: Lethargy and somnolence is worse Musculoskeletal: generalized weakness Psychiatric: oriented to person, oriented to place, somnolent Hosp A/P (1) Acute on chronic intracranial subdural hematoma Code(s): I62.01 - NONTRAUMATIC ACUTE SUBDURAL HEMORRHAGE; I62.03 - NONTRAUMATIC CHRONIC SUBDURAL HEMORRHAGE Status: Acute (2) AMS (altered mental status) Code(s): R41.82 - ALTERED MENTAL STATUS, UNSPECIFIED Status: Acute (3) Protein C deficiency Code(s): D68.59 - OTHER PRIMARY THROMBOPHILIA Status: Acute (4) Obesity Code(s): E66.9 - OBESITY, UNSPECIFIED Status: Acute (5) Elevated blood sugar Code(s): R73.9 - HYPERGLYCEMIA, UNSPECIFIED Status: Acute - Plan Plan: upgrade to the Intensive care unit pulmonology/critical-care consultation, recommendations appreciated neurosurgery consultation, recommendations appreciated neurology consultation, recommendations appreciated May require surgical intervention if worsens IV antiepileptic drug repeat CT scan of the brain noted Q1 hour neuro- checks on Coumadin chronically though this has been discontinued since prior admission NO Coumadin, anticoagulation, antiplatelet therapy, or nonsteroidal anti- inflammatory drugs in the setting of acute on chronic subdural hematoma patient confirmed to have diabetes mellitus with hemoglobin A1c of 9.7 insulin sliding-scale coverage for hyperglycemia lipid panel confirms hyperlipidemia elevated LFTs with likely fatty liver disease blood pressure control neckline blood sugar control G.I. prophylaxis DVT prophylaxis SCDs no chemical anti-coagulation in the setting of acute on chronic subdural hematoma
[2019-04-05] MEDS ORDERED: Fentanyl 100 MCG/2 ML VIAL ONE ×2 (17:12→20:05)
[2019-04-05] MEDS ORDERED: Thrombin 5000 UNITS/5 ML VIAL ONE (17:16)
[2019-04-05] MEDS ORDERED: Lidocaine 0.5%/Epinephrine 1:200,000 50 ml Vial ONE (17:16)
[2019-04-05] MEDS ORDERED: Bacitracin Zinc Ointment 30 gm TUBE ONE (17:17)
[2019-04-05] MEDS ORDERED: Sodium Chloride 0.9% 10 ML ONE ×3 (17:17→19:22)
--- NOTE | 2019-04-05 18:05 | PRG ---
DATE OF SERVICE: 04/05/2019 Throughout the course of the hospital day, I was contacted on a few occasions by nursing staff about Ms. Liu. She continues to wax and wane neurologically. At times, she is very hard to arouse, snores and does not respond to questions. Other times, she perks up. We have given her a 0.25 g/kilo bolus of mannitol which resulted in some neurological improvement. Evidently, there is some mass effect that needs to be treated. Repeat CT scan today did not show any increase in the subdural hematoma compared to this morning, but all of them do show that the subdurals on both sides are larger than they were during her previous admission. These somewhat balanced subdural hematomas are likely under some pressure, and I have offered her jonnie hole evacuation. This morning and again just now, we discussed jonnie hole evacuation of subdural hematoma. Informed consent: I discussed indications, risks, benefits, alternatives, and expected outcomes from surgery. The risks we discussed, again included, but were not limited to, bleeding, infection, brain damage, stroke, paralysis, major neurological deficits, speech deficit, loss of language, loss of vision, change in personality, dependence for care, cardiopulmonary complications of anesthesia and . Future risks included, but were not limited to, recurrence, need for future surgery, hydrocephalus, and delayed neurological decline. She and family understood the risks and wanted to proceed. We will take her to the operating room for jonnie hole evacuation of subdural hematoma on both sides. Job ID: [id number]
[2019-04-05] MEDS ORDERED: Promethazine HCl 25 MG/ML VIAL SLOW IVP PRN (20:51)
[2019-04-05] MEDS ORDERED: Promethazine HCl 25 MG/ML VIAL IM PRN (20:51)
[2019-04-05] MEDS ORDERED: Ondansetron HCl/PF 4 MG/2 ML Vial IVP PRN (20:51)
--- NOTE | 2019-04-05 21:18 | OP ---
DATE OF PROCEDURE: 04/05/2019 SENIOR APPLICATIONS ARCHITECT: None. PREOPERATIVE INDICATION: Prevent neurological deterioration. PREOPERATIVE DIAGNOSIS: Bilateral subdural hematomas, subacute on chronic with mass effect. POSTOPERATIVE DIAGNOSIS: Bilateral subdural hematomas, subacute on chronic with mass effect. OPERATIVE PROCEDURE: Bilateral jonnie hole evacuation of subdural hematoma, placement of subdural drains. PREOPERATIVE MEDICATION: Ancef 2 g IV. DRAIN NUMBER: Two. DRAIN TYPE: 10-[place] red rubber catheters in the subdural space. DESCRIPTION OF PROCEDURE: The patient was brought to the operating room. General endotracheal anesthesia was induced. The patient was positioned supine on the operating table. Her head was supported by a mastoid headrest and the forehead was taped to the headrest as well. The hair was removed with electric clippers from both sides of the cranium. We marked out incisions near the coronal suture anteriorly and between the parietal boss on the midline posteriorly. We also marked out the drain exit points. Under our planned incisions, we infused local anesthetic. The scalp was sterilely prepped and draped. We opened the left side incisions first, starting anteriorly and then posteriorly. We controlled bleeding with bipolar cautery. We placed mastoid retractors. About a high-speed drill into the field and using a perforating bit, we placed two bur holes, one at the coronal suture and one medial to the parietal boss. We waxed the edges of the jonnie holes. We coagulated the dura. We opened posteriorly first and then anteriorly and entered the subdural space. There was subdural hematoma with yellow to dark yellow fluid, which came out under some pressure. Immediately, the brain re-expanded and met the dura of the posterior jonnie hole. On the right side, we opened our anterior and posterior incisions, coagulated all bleeders and placed self-retaining retractors. In similar fashion, we used a high-speed drill and a perforating bit to fashion a bur hole just anterior to the coronal suture and just medial to the parietal boss posteriorly. We waxed the edges of the jonnie hole. We coagulated the dura and opened in a cruciate fashion. We entered subdural space here. There was more dense subdural fluid with subacute on chronic appearing blood products, which were red to dark red. We irrigated the subdural space on both sides copiously with bacitracin irrigation. Because the brain re-expanded posteriorly quite nicely under our parietal jonnie holes, we placed our drains through the frontal jonnie holes. We aimed posteriorly and laterally with each of the drains. These were tunneled through separate stab incisions and connected to Smions drainage devices. We irrigated the subdural space once again. We placed Gelfoam over the posterior jonnie holes and closed these. We then filled the subdural space with irrigant through our frontal jonnie holes. We placed Gelfoam and closed in anatomical layers there as well. Shiro were used for the skin. We reinforced the drain exit sites with suture as well. We placed sterile dressings and wrapped the head. The drains were left open just below the level of the head. The patient was transferred to the PACU in good neurological condition. Job ID: [id number]
[2019-04-05] MEDS: HumaLOG 300 UNITS/3 ML VIAL SC PRN (21:56)
[2019-04-06] MEDS: CEFAZOLIN 2 GM in Premix Bag 1 BAG IVPB SCH ×3 (02:15→17:46)
[2019-04-06] MEDS: Acetaminophen 325 MG TAB PO PRN ×4 (02:20→22:58)
[2019-04-06] MEDS: Sodium Chloride 0.9% 1,000 ML IV SCH ×2 (04:19→12:43)
[2019-04-06] MEDS: HumaLOG 300 UNITS/3 ML VIAL SC PRN ×4 (06:04→22:58)
--- NOTE | 2019-04-06 07:06 | PRG ---
DATE OF SERVICE: 04/06/2019 Ms. Liu is 1 day out from jonnie hole evacuation of bilateral subdural hematoma. She rested comfortably overnight. She has a headache from the change and pressure in her head, but she was more alert and responsive all night. Along her electronically recorded vital signs, I see a maximum temperature of 99.5 degrees. Blood pressures have ranged between 140s and 160s. On examination, she wakes to voice. She moves all extremities well. She speaks fluently. She is comprehensible and she is coherent. CT examination of the brain this morning reveals nice resolution of bilateral subdural hematomas. There is some pneumocephalus anteriorly as it typically is in the bilateral cases due to positioning on the operating table. However, the mass effect has significantly reduced. The drains are in the subdural space. Today, I got Ms. Liu get up and move around. She can roll [id number]. She can lie flat. She can sit up. She can transfer to bedside chair. This movement will recirculate some of the residual subdural fluid and air, and hopefully, the drains removed even more than they have already. I am planning on removing the drain tomorrow morning. We will continue antibiotics until they are out. Job ID: [id number] [facility]
--- NOTE | 2019-04-06 07:36 | CT ---
PRELIMINARY REPORT/[facility]/EMERGENCY AFTER HOURS PROCEDURE: EXAM: CT Head Without Intravenous Contrast. CLINICAL HISTORY: [facility] F/U TECHNIQUE: Axial computed tomography images of the head/brain without intravenous contrast. COMPARISON: CT - CT BRAIN WO CON - 04/05/2019 04:56 AM TECHNOLOGY TRAINING ASSOCIATE FINDINGS: BRAIN: There is a new bur hole in bilateral frontal region with draining catheters. There is interval decreased subdural fluid collection bilaterally with pneumocephalus in bilateral frontal region. There is no midline shift. No intra-axial fluid collection. VENTRICLES: No hydrocephalus. ORBITS: The orbits are unremarkable. SINUSES AND MASTOIDS: The paranasal sinuses and mastoid air cells are clear. SOFT TISSUES: No significant facial or scalp soft tissue swelling evident. No radiopaque foreign body is seen. BONES: No acute skull fracture. IMPRESSION: There is a new bur hole in bilateral frontal region with draining catheters. There is interval decrea sed subdural fluid collection bilaterally with pneumocephalus in bilateral frontal region. ELECTRONICALLY SIGNED BY: Jania Jamison MD Apr 06, 2019 4:33:50 AM TECHNOLOGY TRAINING ASSOCIATE FINAL REPORT: HEAD CT WITHOUT CONTRAST: DATE: 04/06/2019. COMPARISON: 04/05/2019. HISTORY: Subdural hematoma status post drainage. FINDINGS: There are 2 new jonnie holes within the calvarium on the right as well as on the left near the vertex. Associated bilateral cutaneous shay are present. Anterior postsurgical drains are placed into the subdural space, terminating near the vertex on the right and terminating in the temporal region o n the left. There is significant anterior pneumocephalus bilaterally. Small volume residual subdural fluid collections present. No intraaxial hemorrhage. No midline shift. IMPRESSION: Interval surgical treatment of bilateral subdural hematomas as detailed above. Transcribed Date/Time: 04/06/2019 7:55 AM
[2019-04-06] MEDS: Famotidine/PF 20 mg/2ml Vial SLOW IVP SCH ×2 (09:07→21:44)
[2019-04-06] MEDS: Lisinopril 5 MG TAB PO SCH (09:08)
--- NOTE | 2019-04-06 13:42 | PDOC.HOSPP ---
- Subjective Subjective: Seen and examined in the intensive care unit. Status post bilateral boreholes with trains intact. Patient is talking in full sentences. Patient has no focal neurologic deficits. Patient eating her breakfast. Sitting up in bed in no apparent distress. Patient has had a good outcome thus far of required neurosurgical intervention. She is significantly improved from yesterday before surgery. - Objective Vital Signs & Weight: Vital Signs (12 hours) Temp Pulse Pulse Pulse BP BP BP 04/06/19 12:00 98.4 F 04/06/19 10:46 60 58 L 127/57 L 135/70 04/06/19 09:08 66 135/62 04/06/19 07:13 04/06/19 07:00 98.8 F 04/06/19 04:00 98.2 F Pulse Ox Pulse Ox 04/06/19 12:00 04/06/19 10:46 95 04/06/19 09:08 04/06/19 07:13 94 L 04/06/19 07:00 04/06/19 04:00 Weight Weight 270 lb 0.002 oz Most Recent Monitor Data Heart Rate from ECG 58 NIBP 130/69 NIBP BP-Mean 89 Respiration from ECG 20 SpO2 96 I&O: 04/05/19 04/06/19 04/07/19 06:59 06:59 06:59 Intake Total 1750 800 0 Output Total 450 2353 330 Balance 1300 -1553 -330 Result Diagrams: 04/05/19 03:47 04/05/19 03:47 Radiology Reviewed by me: Yes Hospitalist ROS - Review of Systems All other systems reviewed; all pertinent +/- noted in HPI/Subj - Medication Medications: Active Medications Generic Name Dose Route Start Last Admin Trade Name Freq PRN Reason Stop Dose Admin Acetaminophen 650 mg 04/04/19 13:13 04/06/19 02:20 Tylenol PO 650 mg Q4H PRN Administration Headache/Fever/Mild Pain (1-3) Famotidine 20 mg 04/04/19 21:00 04/06/19 09:07 Pepcid SLOW IVP 20 mg Q12HR JAKE Administration Sodium Chloride 1,000 mls @ 90 mls/hr 04/05/19 07:15 04/06/19 12:43 Normal Saline 0.9% IV 1,000 mls .Q11H7M JAKE Administration Levetiracetam 500 mg/ Device 100 mls @ 200 mls/hr 04/05/19 21:00 04/06/19 09: 08 IVPB 100 mls BID JAKE Administration Cefazolin Sodium/Dextrose 2 gm 50 mls @ 100 mls/hr 04/06/19 02:00 04/06/19 11 :37 / Device IVPB 50 mls 0200,1000,1800 JAKE Administration Insulin Human Lispro 0 units 04/04/19 16:01 04/06/19 11:36 Humalog SC 3 unit .MILD SLIDING SCALE PRN Administration Mild Correctional Scale Insulin Human Lispro 0 units 04/04/19 16:01 04/05/19 21:56 Humalog SC 3 unit .BEDTIME SLIDING SC PRN Administration Bedtime Correctional Scale Lisinopril 5 mg 04/05/19 09:00 04/06/19 09:08 Zestril PO 5 mg DAILY JAKE Administration - Exam General Appearance: NAD, awake alert General - other findings: Bilateral cranial drains in position Eye: PERRL, anicteric sclera ENT: normocephalic atraumatic, moist mucosa Neck: supple, symmetric, no lymphadenopathy Heart: no murmur, no gallops, no rubs Respiratory: CTAB, no wheezes, no rales, no ronchi, normal chest expansion Gastrointestinal: soft, non-tender, no guarding, no rigidity Extremities: 1+ LE edema Skin: no lesions, no rashes Neurological: cranial nerve grossly intact, no focal deficits Musculoskeletal: generalized weakness Psychiatric: normal affect, normal behavior, A&O x 3 Hosp A/P (1) Acute on chronic intracranial subdural hematoma Code(s): I62.01 - NONTRAUMATIC ACUTE SUBDURAL HEMORRHAGE; I62.03 - NONTRAUMATIC CHRONIC SUBDURAL HEMORRHAGE Status: Acute (2) AMS (altered mental status) Code(s): R41.82 - ALTERED MENTAL STATUS, UNSPECIFIED Status: Acute (3) Protein C deficiency Code(s): D68.59 - OTHER PRIMARY THROMBOPHILIA Status: Acute (4) Obesity Code(s): E66.9 - OBESITY, UNSPECIFIED Status: Acute (5) Elevated blood sugar Code(s): R73.9 - HYPERGLYCEMIA, UNSPECIFIED Status: Acute - Plan Plan: Intensive care unit pulmonology/critical-care consultation, recommendations appreciated neurosurgery consultation, recommendations appreciated neurology consultation, recommendations appreciated S/p bilateral L[place] hole on 04/05/2019, tolerated well with significant improvement after surgery IV antiepileptic drug repeat CT scan of the brain noted Q1 hour neuro- checks on Coumadin chronically though this has been discontinued since prior admission NO Coumadin, anticoagulation, antiplatelet therapy, or nonsteroidal anti- inflammatory drugs in the setting of acute on chronic subdural hematoma patient confirmed to have diabetes mellitus with hemoglobin A1c of 9.7 insulin sliding-scale coverage for hyperglycemia lipid panel confirms hyperlipidemia elevated LFTs with likely fatty liver disease blood pressure control blood sugar control G.I. prophylaxis DVT prophylaxis SCDs - no chemical anti-coagulation in the setting of acute on chronic subdural hematoma
--- NOTE | 2019-04-06 20:38 | PRG ---
DATE OF SERVICE: 04/06/2019 SUBJECTIVE: Nancy Liu improved dramatically compared to yesterday. Now that she has had a jonnie hole evacuation of her subdural hematomas. She is in no distress. Her hemodynamics remained stable. OBJECTIVE: LUNGS: Clear. HEART: Regular rhythm. ABDOMEN: Soft. EXTREMITIES: Without asymmetry or edema. She had a Doppler done yesterday, that showed no clots in her legs. IMPRESSION AND PLAN: 1. Bilateral subdurals with altered mental status, improved after drainage. 2. 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 She appears to be stable at this point. I suspect the time period before anticoagulation would be at least 2 weeks and perhaps at that time, the best option would be prophylactic dose anticoagulants for 1 to 2 weeks before we get back to full-dose anticoagulants. Plan discussed with Neurosurgery. She is certainly at risk for thrombotic event, given her hypercoagulable state, but we have no choice other than to watch her closely and then when feasible, start her on prophylactic dose anticoagulants. Certainly this option at this time. I met with the and answered all of his questions today, and met with the and the sister and answered all both their questions yesterday. Job ID: [id number]
[2019-04-07] MEDS: CEFAZOLIN 2 GM in Premix Bag 1 BAG IVPB SCH ×3 (01:57→17:12)
[2019-04-07] MEDS: Acetaminophen 325 MG TAB PO PRN ×3 (05:14→21:52)
[2019-04-07] MEDS: Sodium Chloride 0.9% 1,000 ML IV SCH ×2 (07:04→17:00)
--- NOTE | 2019-04-07 07:59 | PRG ---
DATE OF SERVICE: 04/07/2019 I saw Nancy Liu in the ICU this morning. Her drains are still in position. Her headache is better than it was before surgery. She has been alert and oriented since the operation. Among her monitor vital signs, I see a temperature of 99.5 degrees recorded, but that was at midnight yesterday. There has been no elevated temperature since. Blood pressures have been between the 90s and 120s. Her neurological examination is normal. Both drains were removed this morning without incident. We will keep her flat for the next hour. We will slowly raise her head. By lunchtime she will be sitting. If she is safe to transfer from the ICU to the general floor care at noon time, then we will make those arrangements. Job ID: [id number]
[2019-04-07] MEDS: Famotidine/PF 20 mg/2ml Vial SLOW IVP SCH ×2 (09:46→20:18)
[2019-04-07] MEDS: HumaLOG 300 UNITS/3 ML VIAL SC PRN ×2 (09:46→17:52)
[2019-04-07] MEDS: Lisinopril 5 MG TAB PO SCH (09:47)
--- NOTE | 2019-04-07 13:02 | PDOC.HOSPP ---
- Subjective Subjective: Seen and examined. Bilateral drains have been removed by neurosurgery. Patient has shay intact. Patient is talking in full sentences and back to her baseline mentation. Patient is moving all extremities without focal neurologic deficits. Family at bedside, time was given for questions, all answered in detail. Patient and family are happy with plan of care. - Objective Vital Signs & Weight: Vital Signs (12 hours) Temp Pulse BP Pulse Ox 04/07/19 12:00 98 F 04/07/19 11:00 98 F 04/07/19 09:47 57 L 124/65 04/07/19 08:00 98 F 95 04/07/19 04:00 98.7 F Weight Weight 270 lb 0.002 oz Most Recent Monitor Data Heart Rate from ECG 62 NIBP 146/58 NIBP BP-Mean 87 Respiration from ECG 15 SpO2 96 I&O: 04/06/19 04/07/19 04/08/19 06:59 06:59 06:59 Intake Total 800 1889 300 Output Total 2353 1541 300 Balance -1553 348 0 Result Diagrams: 04/05/19 03:47 04/05/19 03:47 Additional Labs: Accuchecks 04/07/19 04/06/19 12:26 22:52 POC Glucose 188 H 204 H Radiology Reviewed by me: Yes Hospitalist ROS - Review of Systems All other systems reviewed; all pertinent +/- noted in HPI/Subj - Medication Medications: Active Medications Generic Name Dose Route Start Last Admin Trade Name Freq PRN Reason Stop Dose Admin Acetaminophen 650 mg 04/04/19 13:13 04/07/19 09:56 Tylenol PO 650 mg Q4H PRN Administration Headache/Fever/Mild Pain (1-3) Famotidine 20 mg 04/04/19 21:00 04/07/19 09:46 Pepcid SLOW IVP 20 mg Q12HR JAKE Administration Sodium Chloride 1,000 mls @ 90 mls/hr 04/05/19 07:15 04/07/19 07:04 Normal Saline 0.9% IV 1,000 mls .Q11H7M JAKE Administration Levetiracetam 500 mg/ Device 100 mls @ 200 mls/hr 04/05/19 21:00 04/07/19 09: 56 IVPB 100 mls BID JAKE Administration Cefazolin Sodium/Dextrose 2 gm 50 mls @ 100 mls/hr 04/06/19 02:00 04/07/19 09 :43 / Device IVPB 50 mls 0200,1000,1800 JAKE Administration Insulin Human Lispro 0 units 04/04/19 16:01 04/07/19 09:46 Humalog SC 3 unit .MILD SLIDING SCALE PRN Administration Mild Correctional Scale Insulin Human Lispro 0 units 04/04/19 16:01 04/06/19 22:58 Humalog SC 2 unit .BEDTIME SLIDING SC PRN Administration Bedtime Correctional Scale Lisinopril 5 mg 04/05/19 09:00 04/07/19 09:47 Zestril PO 5 mg DAILY JAKE Administration - Exam General Appearance: NAD, awake alert Eye: PERRL ENT: normocephalic atraumatic, moist mucosa Neck: supple, symmetric, no lymphadenopathy Heart: no murmur, no gallops, no rubs Respiratory: CTAB, no wheezes, no rales, no ronchi, normal chest expansion Gastrointestinal: soft, non-tender, no guarding, no rigidity Extremities: no edema Skin: no lesions, no rashes Neurological: cranial nerve grossly intact, no focal deficits Musculoskeletal: generalized weakness Psychiatric: normal affect, normal behavior, A&O x 3 Hosp A/P (1) Acute on chronic intracranial subdural hematoma Code(s): I62.01 - NONTRAUMATIC ACUTE SUBDURAL HEMORRHAGE; I62.03 - NONTRAUMATIC CHRONIC SUBDURAL HEMORRHAGE Status: Acute (2) AMS (altered mental status) Code(s): R41.82 - ALTERED MENTAL STATUS, UNSPECIFIED Status: Acute (3) Protein C deficiency Code(s): D68.59 - OTHER PRIMARY THROMBOPHILIA Status: Acute (4) Obesity Code(s): E66.9 - OBESITY, UNSPECIFIED Status: Acute (5) Elevated blood sugar Code(s): R73.9 - HYPERGLYCEMIA, UNSPECIFIED Status: Acute - Plan Plan: Intensive care unit pulmonology/critical-care consultation, recommendations appreciated neurosurgery consultation, recommendations appreciated neurology consultation, recommendations appreciated S/p bilateral [place] hole on 04/05/2019, tolerated well with significant improvement after surgery Drain removal on 04/07/2019, continues to improve IV antiepileptic drug repeat CT scan of the brain noted Q1 hour neuro- checks NO Coumadin, anticoagulation, antiplatelet therapy, or nonsteroidal anti- inflammatory drugs in the setting of acute on chronic subdural hematoma patient confirmed to have diabetes mellitus with hemoglobin A1c of 9.7 insulin sliding-scale coverage for hyperglycemia lipid panel confirms hyperlipidemia elevated LFTs with likely fatty liver disease on Coumadin chronically for protein C deficiency, though this has been discontinued since prior admission blood pressure control blood sugar control G.I. prophylaxis DVT prophylaxis SCDs - no chemical anti-coagulation in the setting of acute on chronic subdural hematoma
--- NOTE | 2019-04-07 19:55 | PRG ---
DATE OF SERVICE: 04/07/2019 SUBJECTIVE: Nancy Liu continues to improve neurologically. Her drains are out. OBJECTIVE: GENERAL: She is in no distress. LUNGS: Clear. HEART: Regular rhythm. ABDOMEN: Soft. Given her drains are out, and her subdurals are evacuated, I would like to discuss with Dr. Gifford starting her on some type of DVT prophylaxis in the next few days. Job ID: [id number]
[2019-04-08] MEDS: CEFAZOLIN 2 GM in Premix Bag 1 BAG IVPB SCH (01:42)
--- NOTE | 2019-04-08 07:10 | PRG ---
DATE OF SERVICE: 04/08/2019 I saw Nancy Liu in the ICU this morning. She wakes easily when I enter. She said yesterday went fine and that the pain she now has in her head is more likely her scalp because she finds it goes away if she keeps her head off the pillow by supporting her neck. She thinks the surgical dissection and sewing has made the scalp hurt rather than having the same headache she had before surgery. She does not report any difficulty waking or moving her extremities or speaking. No events were reported from overnight. Among the electronic vital signs, I do not see any fevers recorded. Blood pressures have ranged between the 90s and 120s. Ms. Liu' neurological function has improved since surgery. She wakes easily. She answers questions appropriately. Her speech is fluent. There is no delirium or disorientation. There are no lateralizing motor or sensory deficits. Today, I will get ultrasound of the lower extremities. I will ask her to start moving around with the assistance of physical therapy to decrease her chances of deep venous thrombosis. From the date of surgery until 2 weeks later (April 19), I would like to keep her off anticoagulation. We will get a CT scan of the brain that morning and if the subdural hematomas look resolved and we will start her anticoagulation then. I believe Ms. Liu is ready for transfer to floor care. Job ID: [id number]
[2019-04-08] MEDS: Sodium Chloride 0.9% 1,000 ML IV SCH ×2 (07:53→14:13)
--- NOTE | 2019-04-08 08:33 | ULT ---
EXAM: Bilateral lower extremity venous ultrasound HISTORY: Routine C deficiency. Risk for DVT. COMPARISON: 04/05/2019 TECHNIQUE: Multiplanar grayscale and color Doppler images were obtained in a bilateral lower extremit y venous ultrasound. Spectral analysis of the Doppler waveforms were performed. FINDINGS: The bilateral common femoral vein, profunda femoral veins, superficial femoral veins, and p opliteal veins are normal in appearance without visible thrombus. These vessels demonstrate normal compression, flow, and augmentation. The bilateral posterior tibial veins, profunda femoral veins and greater saphenous veins are patent w ithout evidence of DVT. IMPRESSION: No evidence of DVT in the left or right lower extremity.
[2019-04-08] MEDS: Famotidine 20 MG TAB PO SCH ×2 (09:43→20:42)
[2019-04-08] MEDS: Lisinopril 5 MG TAB PO SCH (09:43)
--- NOTE | 2019-04-08 12:02 | PDOC.HOSPP ---
- Subjective Subjective: Patient continues to improve in the intensive care unit. Moving all extremities without deficits. Talking in full sentences. Patient has had a good response to surgical intervention. Patient will remain off oral and coagulation until the per neurosurgery. Time was given for questions, all questions answered in detail. - Objective Vital Signs & Weight: Vital Signs (12 hours) Temp Pulse BP Pulse Ox 04/08/19 09:43 57 L 120/46 L 04/08/19 08:00 98.6 F 04/08/19 06:00 98.1 F 04/08/19 04:00 98.2 F 96 Weight Weight 270 lb 0.002 oz Most Recent Monitor Data Heart Rate from ECG 55 NIBP 120/48 NIBP BP-Mean 72 Respiration from ECG 17 SpO2 98 I&O: 04/07/19 04/08/19 04/09/19 06:59 06:59 06:59 Intake Total 1889 2090 400 Output Total 1541 1055 1 Balance 348 1035 399 Result Diagrams: 04/05/19 03:47 04/05/19 03:47 Additional Labs: Accuchecks 04/07/19 04/07/19 04/07/19 20:11 17:20 12:26 POC Glucose 200 H 181 H 188 H 04/07/19 04/06/19 04/06/19 07:11 16:10 11:37 POC Glucose 202 H 200 H 225 H 04/06/19 04/05/19 04/05/19 06:03 21:55 17:00 POC Glucose 266 H 252 H 187 H 04/05/19 11:14 POC Glucose 198 H Radiology Reviewed by me: Yes Hospitalist ROS - Review of Systems All other systems reviewed; all pertinent +/- noted in HPI/Subj - Medication Medications: Active Medications Generic Name Dose Route Start Last Admin Trade Name Freq PRN Reason Stop Dose Admin Acetaminophen 650 mg 04/04/19 13:13 04/07/19 21:52 Tylenol PO 650 mg Q4H PRN Administration Headache/Fever/Mild Pain (1-3) Famotidine 20 mg 04/08/19 09:00 04/08/19 09:43 Pepcid PO 20 mg Q12HR JAKE Administration Sodium Chloride 1,000 mls @ 90 mls/hr 04/05/19 07:15 04/08/19 07:53 Normal Saline 0.9% IV Not Given .Q11H7M JAKE Levetiracetam 500 mg/ Device 100 mls @ 200 mls/hr 04/05/19 21:00 04/08/19 09: 42 IVPB 100 mls BID JAKE Administration Insulin Human Lispro 0 units 04/04/19 16:01 04/07/19 17:52 Humalog SC 2 unit .MILD SLIDING SCALE PRN Administration Mild Correctional Scale Insulin Human Lispro 0 units 04/04/19 16:01 04/06/19 22:58 Humalog SC 2 unit .BEDTIME SLIDING SC PRN Administration Bedtime Correctional Scale Lisinopril 5 mg 04/05/19 09:00 04/08/19 09:43 Zestril PO 5 mg DAILY JAKE Administration - Exam Eye: PERRL, anicteric sclera ENT: normocephalic atraumatic, moist mucosa Neck: supple, symmetric, no lymphadenopathy Heart: no murmur, no gallops, no rubs Respiratory: CTAB, no wheezes, no rales, no ronchi, normal chest expansion Gastrointestinal: soft, non-tender, no guarding, no rigidity Extremities: no edema Skin: no lesions, no rashes Neurological: cranial nerve grossly intact, no focal deficits Musculoskeletal: generalized weakness Psychiatric: normal affect, normal behavior, A&O x 3 Hosp A/P (1) Acute on chronic intracranial subdural hematoma Code(s): I62.01 - NONTRAUMATIC ACUTE SUBDURAL HEMORRHAGE; I62.03 - NONTRAUMATIC CHRONIC SUBDURAL HEMORRHAGE Status: Acute (2) AMS (altered mental status) Code(s): R41.82 - ALTERED MENTAL STATUS, UNSPECIFIED Status: Acute (3) Protein C deficiency Code(s): D68.59 - OTHER PRIMARY THROMBOPHILIA Status: Acute (4) Obesity Code(s): E66.9 - OBESITY, UNSPECIFIED Status: Acute (5) Elevated blood sugar Code(s): R73.9 - HYPERGLYCEMIA, UNSPECIFIED Status: Acute - Plan Plan: Intensive care unit pulmonology/critical-care consultation, recommendations appreciated neurosurgery consultation, recommendations appreciated neurology consultation, recommendations appreciated S/p bilateral [place] hole on 04/05/2019, tolerated well with significant improvement after surgery Drain removal on 04/07/2019, continues to improve IV antiepileptic drug repeat CT scan of the brain noted LE US Neg for DVT No Coumadin until 04/19/2019 - Per NSG No anticoagulation, antiplatelet therapy, or nonsteroidal anti-inflammatory drugs in the setting of acute on chronic subdural hematoma patient confirmed to have diabetes mellitus with hemoglobin A1c of 9.7 insulin sliding-scale coverage for hyperglycemia lipid panel confirms hyperlipidemia elevated LFTs with likely fatty liver disease on Coumadin chronically for protein C deficiency, though this has been discontinued since prior admission blood pressure control blood sugar control G.I. prophylaxis DVT prophylaxis SCDs - no chemical anti-coagulation in the setting of acute on chronic subdural hematoma
[2019-04-08] MEDS: HumaLOG 300 UNITS/3 ML VIAL SC PRN (17:00)
--- NOTE | 2019-04-08 19:50 | PRG ---
DATE OF SERVICE: 04/08/2019 SUBJECTIVE: Nancy Liu was feeling well. She has no complaints. She is tentatively on the schedule for a CT again in the morning. OBJECTIVE: VITAL SIGNS: Stable. LUNGS: Unchanged. HEART: Unchanged. ABDOMEN: Unchanged. IMPRESSION: 1. Status post subdural evacuation, clinically stable. 2. Hypercoagulable state. We will continue supportive care. Restarting prophylactic dose. Anticoagulants are reasonably on hold at this time. We will have to decide when we start prophylactic dose and then transition into full dose. Job ID: [id number]
[2019-04-08] MEDS: Acetaminophen 325 MG TAB PO PRN (20:42)
[2019-04-09] MEDS: HumaLOG 300 UNITS/3 ML VIAL SC PRN ×3 (06:08→16:44)
--- NOTE | 2019-04-09 07:48 | PRG ---
DATE OF SERVICE: 04/09/2019 I saw Ms. Liu on rounds today. She is 4 days out from jonnie hole evacuation of subdural hematoma and doing well. She has moved out of the ICU to floor care. 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 Nonetheless, some of the treatment is the same with eventual full anticoagulation being the goal. Overnight she has been symptom-free. Electronic vital signs do not show any fevers. Her blood pressures have been in the 110s to 130s. She wakes easily this morning. She feels she has no cognitive, speech, motor or sensory deficits that I concur with my examination. CT scan is planned for this morning to help plan Lovenox treatment, but has not been done yet. I like the idea of a low dose Lovenox treatment to bridge to full anticoagulation 2 weeks after surgery. I will make sure that the CAT scan does not show any increasing collection of acute blood from the postoperative scan and that the subdural compartments are well decompressed. Given that we are balancing serious risks with using Lovenox after subdural hematoma against the risk of DVT or mesenteric vein thrombus, then I think it is reasonable to keep her in the hospital at least until we prove that the first 2 doses of Lovenox are not going to increase her subdural hematoma. Job ID: [id number] MTDD
[2019-04-09] MEDS: Famotidine 20 MG TAB PO SCH ×2 (08:47→20:29)
[2019-04-09] MEDS: Lisinopril 5 MG TAB PO SCH (08:49)
--- NOTE | 2019-04-09 09:39 | CT ---
Head CT without contrast 04/09/2019: COMPARISON: 04/06/2019 HISTORY: Evaluate bleed following evacuation, history of subdural hematoma TECHNIQUE: Axial CT imaging at 5 mm intervals from vertex through skull base without contrast FINDINGS: Bilateral cutaneous scalp shay are noted at the vertex. Anterior and posterior bilateral jonnie holes are present. Subdural drainage catheters present on the prior examination have been removed. There are numerous foci of subdural gas/pneumocephalus bilaterally. There is no midline shift or mass effect. There is no ventricular enlargement. The volume of pneumocephalus has decreased when compared to the prior examination bilaterally. There is small volume residual subdural hemorrhage within the left frontal region, unchanged when com pared to 04/06/2019 examination. No new hemorrhage. IMPRESSION: Postoperative changes consistent with surgical treatment of bilateral subdural hematoma. Small volume residual subdural blood in the left frontal region. Interval improvement in pneumocephalus. No new hemorrhage.
--- NOTE | 2019-04-09 13:02 | PDOC.HOSPP ---
- Subjective Subjective: Seen and examined. Sitting upright in the chair. Breathing comfortably on room oxygen. Minimal incisional headache. Family at bedside, questions were asked, all answered in detail. Hematology input requested for anticoagulation risks versus benefits. - Objective Vital Signs & Weight: Vital Signs (12 hours) Temp Pulse Resp BP BP Pulse Ox 04/09/19 11:23 97.8 F 61 20 147/71 H 98 04/09/19 08:49 65 117/66 04/09/19 07:53 97.9 F 65 20 94 L 04/09/19 03:35 97.7 F 50 L 16 116/69 97 Weight Weight 270 lb 0.002 oz Most Recent Monitor Data Heart Rate from ECG 53 NIBP 138/88 NIBP BP-Mean 104 Respiration from ECG 13 SpO2 99 I&O: 04/08/19 04/09/19 04/10/19 06:59 06:59 06:59 Intake Total 2090 1380 Output Total 1055 5 Balance 1035 1375 Result Diagrams: 04/05/19 03:47 04/05/19 03:47 Additional Labs: Accuchecks 04/09/19 04/09/19 04/08/19 11:26 05:56 20:30 POC Glucose 205 H 159 H 195 H 04/08/19 04/08/19 15:52 12:59 POC Glucose 171 H 200 H Radiology Reviewed by me: Yes Hospitalist ROS - Review of Systems All other systems reviewed; all pertinent +/- noted in HPI/Subj - Medication Medications: Active Medications Generic Name Dose Route Start Last Admin Trade Name Freq PRN Reason Stop Dose Admin Acetaminophen 650 mg 04/04/19 13:13 04/08/19 20:42 Tylenol PO 650 mg Q4H PRN Administration Headache/Fever/Mild Pain (1-3) Famotidine 20 mg 04/08/19 09:00 04/09/19 08:47 Pepcid PO 20 mg Q12HR JAKE Administration Levetiracetam 500 mg/ Device 100 mls @ 200 mls/hr 04/05/19 21:00 04/09/19 08: 49 IVPB 100 mls BID JAKE Administration Insulin Human Lispro 0 units 04/04/19 16:01 04/09/19 11:23 Humalog SC 3 unit .MILD SLIDING SCALE PRN Administration Mild Correctional Scale Insulin Human Lispro 0 units 04/04/19 16:01 04/06/19 22:58 Humalog SC 2 unit .BEDTIME SLIDING SC PRN Administration Bedtime Correctional Scale Lisinopril 5 mg 04/05/19 09:00 04/09/19 08:49 Zestril PO 5 mg DAILY JAKE Administration Sodium Chloride 10 ml 04/08/19 21:00 04/09/19 08:58 Flush - Normal Saline IVF 10 ml Q12HR JAKE Administration - Exam General Appearance: NAD, awake alert Eye: anicteric sclera ENT: normocephalic atraumatic, moist mucosa Neck: supple, symmetric, no lymphadenopathy Heart: no murmur, no gallops, no rubs Respiratory: CTAB, no wheezes, no rales, no ronchi Gastrointestinal: soft, non-tender, no palpable masses, no guarding, no rigidity Extremities: no edema Skin: no lesions, no rashes Neurological: cranial nerve grossly intact, no focal deficits. negative: facial droop, hemiplegia, speech deficit Musculoskeletal: generalized weakness Psychiatric: normal affect, normal behavior, A&O x 3 Hosp A/P (1) Acute on chronic intracranial subdural hematoma Code(s): I62.01 - NONTRAUMATIC ACUTE SUBDURAL HEMORRHAGE; I62.03 - NONTRAUMATIC CHRONIC SUBDURAL HEMORRHAGE Status: Acute (2) AMS (altered mental status) Code(s): R41.82 - ALTERED MENTAL STATUS, UNSPECIFIED Status: Acute (3) Protein C deficiency Code(s): D68.59 - OTHER PRIMARY THROMBOPHILIA Status: Acute (4) Obesity Code(s): E66.9 - OBESITY, UNSPECIFIED Status: Acute (5) Elevated blood sugar Code(s): R73.9 - HYPERGLYCEMIA, UNSPECIFIED Status: Acute - Plan Plan: Medical/ surgical unit Hematology consultation, recommendations appreciated neurosurgery consultation, recommendations appreciated neurology consultation, recommendations appreciated Question is whether there is a role for anticoagulation in this patient or not, NSG considering Lovenox No Coumadin until 04/19/2019 - Per NSG No anticoagulation, antiplatelet therapy, or nonsteroidal anti-inflammatory drugs in the setting of acute on chronic subdural hematoma S/p bilateral [place] hole on 04/05/2019, tolerated well with significant improvement after surgery Drain removal on 04/07/2019, continues to improve IV antiepileptic drug repeat CT scan of the brain noted LE US Neg for DVT patient confirmed to have diabetes mellitus with hemoglobin A1c of 9.7 insulin sliding-scale coverage for hyperglycemia lipid panel confirms hyperlipidemia elevated LFTs with likely fatty liver disease on Coumadin chronically for protein C deficiency, though this has been discontinued since prior admission blood pressure control blood sugar control G.I. prophylaxis DVT prophylaxis SCDs - no chemical anti-coagulation in the setting of acute on chronic subdural hematoma
[2019-04-10] MEDS: HumaLOG 300 UNITS/3 ML VIAL SC PRN ×4 (05:13→22:20)
[2019-04-10 05:59] LABS: #Eosinphils 0.1 thou/uL (0.0-0.7); #Lymphocytes 1.5 thou/uL (1.20-3.40); #Monocytes 0.3 thou/uL (0.11-0.59); #Neutrophils 3.2 thou/uL (1.40-6.50); %Basophils 0.9 % (0.0-1.0); %Eosinophils 1.9 % (0.0-10.0); %Lymphocytes 28.9 % (21.0-51.0); %Monocytes 6.6 % (0.0-10.0); %Neutrophils 61.8 % (42.0-75.0); Hemoglobin 12.2 g/dL (12.0-16.0); Mean Corpuscular HGB CONC 33.1 g/dL (32.0-36.0); Mean Corpuscular Hemoglobin 29.3 pg (27.0-31.0); Mean Corpuscular Volume 88.6 fL (78.0-98.0); Mean Platelet Volume 8.1 fL (7.4-10.4); Platelet Count 170 thou/uL (130-400); RBC Distribution Width 13.5 % (11.5-14.5); Red Blood Cell (RBC) Count 4.15 mill/uL (4.20-5.40); White Blood Cell (WBC) Count 5.2 thou/uL (4.8-10.8)
[2019-04-10 06:15] LABS: Anion Gap 12 mmol/L (10-20); BUN (Urea Nitrogen) 8 mg/dL (9.8-20.1); Calc. Creatinine Clearance 209 mL/min (70-130); Calcium 8.4 mg/dL (7.8-10.44); Carbon Dioxide 26 mmol/L (22-29); Chloride 104 mmol/L (98-107); Estimated GFR-MDRD Greater than 90; Glucose 159 mg/dL (70-105); Potassium 3.5 mmol/L (3.5-5.1); Sodium 138 mmol/L (136-145)
--- NOTE | 2019-04-10 08:39 | PRG ---
DATE OF SERVICE: 04/10/2019 SUBJECTIVE: The patient is postoperative day #5, status post evacuation of bilateral subdural hematoma, acute on chronic, with bilateral jonnie holes. She was transitioned to the floor yesterday and reports she is feeling well during my visit at the bedside. She had a repeat noncontrast CT head yesterday which showed significant improvement of the prior hygromas and only a small amount of residual subdural blood along the left frontal convexity. Since the patient has a hypercoagulable state, our plan is to start her on heparin today. Heparin 5000 units subcu b.i.d. has been ordered. OBJECTIVE: GENERAL: On exam this morning, patient is awake, alert, no acute distress. EXTREMITIES: She has free active range of motion of all extremities. No focal motor weakness or reflex asymmetry. Her incisions are clean, dry, and intact. ASSESSMENT AND PLAN: We will plan to start her on heparin today. We will plan to repeat a noncontrast head CT for ongoing evaluation in the morning. We will continue to mobilize appropriately. Job ID: [id number]
[2019-04-10] MEDS: Famotidine 20 MG TAB PO SCH ×2 (08:43→20:26)
[2019-04-10] MEDS: Lisinopril 5 MG TAB PO SCH (08:43)
[2019-04-10] MEDS: Heparin 5,000 UNITS/ML VIAL SC SCH ×2 (08:44→20:26)
--- NOTE | 2019-04-10 12:33 | PRG ---
DATE OF SERVICE: 04/10/2019 SUBJECTIVE: Nancy Liu this morning is awake, alert, responsive, less headache. OBJECTIVE: VITAL SIGNS: Sats 90% on room air, temperature 99, pulse 55, respirations 20, and blood pressure 120/74. CHEST: Decreased breath sounds. No wheezing. CARDIAC: Normal S1, S2. No gallops. ABDOMEN: No masses. LABORATORY DATA: Labs unremarkable. IMPRESSION: Status post subdural evacuation in hypercoagulable state. DISPOSITION: As per Surgery. PLAN: To start heparin the next day or 2. We will follow. Job ID: [id number]
--- NOTE | 2019-04-10 13:29 | PRG ---
DATE OF SERVICE: 04/10/2019 The patient was seen and examined. She was up in the chair, eating and doing quite well. She is neurologically intact and in good spirits. Her incisions are clean, dry, and intact. She is on heparin 5000 b.i.d. due to her hypercoagulable state. I will defer to Dr. Gifford and Dr. Gaffney regarding gradually increasing her anticoagulation overtime. Follow up CT scan is planned for tomorrow. Job ID: [id number]
--- NOTE | 2019-04-10 16:48 | PDOC.HOSPP ---
- Subjective Encounter Date: 04/10/19 Encounter Time: 13:45 Subjective: pt up in bed feels well. - Objective Vital Signs & Weight: Vital Signs (12 hours) Temp Pulse Resp BP BP Pulse Ox 04/10/19 10:44 99.3 F 65 20 122/74 93 L 04/10/19 08:43 62 109/65 04/10/19 08:00 96 04/10/19 07:34 97.7 F 62 20 109/65 96 Weight Weight 270 lb 0.002 oz Most Recent Monitor Data Heart Rate from ECG 53 NIBP 138/88 NIBP BP-Mean 104 Respiration from ECG 13 SpO2 99 I&O: 04/09/19 04/10/19 04/11/19 06:59 06:59 06:59 Intake Total 1380 750 Output Total 5 Balance 1375 750 Result Diagrams: 04/10/19 05:37 04/10/19 05:37 Additional Labs: Accuchecks 04/10/19 04/10/19 04/10/19 15:13 10:50 05:13 POC Glucose 167 H 163 H 155 H 04/09/19 21:12 POC Glucose 160 H Hospitalist ROS - Review of Systems Cardiovascular: denies: chest pain, palpitations, orthopnea, paroxysmal noc. dyspnea, edema, light headedness, other Gastrointestinal: denies: nausea, vomiting, abdominal pain, diarrhea, constipation, melena, hematochezia, other Genitourinary: denies: dysuria, frequency, incontinence, hematuria, retention, other - Medication Medications: Active Medications Generic Name Dose Route Start Last Admin Trade Name Freq PRN Reason Stop Dose Admin Acetaminophen 650 mg 04/04/19 13:13 04/08/19 20:42 Tylenol PO 650 mg Q4H PRN Administration Headache/Fever/Mild Pain (1-3) Famotidine 20 mg 04/08/19 09:00 04/10/19 08:43 Pepcid PO 20 mg Q12HR JAKE Administration Heparin Sodium (Porcine) 5,000 units 04/10/19 09:00 04/10/19 08:44 Heparin SC 5,000 units BID JAKE Administration Levetiracetam 500 mg/ Device 100 mls @ 200 mls/hr 04/05/19 21:00 04/10/19 08: 44 IVPB 100 mls BID JAKE Administration Insulin Human Lispro 0 units 04/04/19 16:01 04/10/19 11:36 Humalog SC 2 unit .MILD SLIDING SCALE PRN Administration Mild Correctional Scale Insulin Human Lispro 0 units 04/04/19 16:01 04/06/19 22:58 Humalog SC 2 unit .BEDTIME SLIDING SC PRN Administration Bedtime Correctional Scale Lisinopril 5 mg 04/05/19 09:00 04/10/19 08:43 Zestril PO 5 mg DAILY JAKE Administration Sodium Chloride 10 ml 04/08/19 21:00 04/10/19 08:45 Flush - Normal Saline IVF 10 ml Q12HR JAKE Administration - Exam Neck: negative: supple, symmetric, no JVD, no thyromegaly, no lymphadenopathy, no carotid bruit, JVD Heart: negative: RRR, no murmur, no gallops, no rubs, normal peripheral pulses, irregular, diminshed peripheral pulses, murmur present, II/IV, III/IV Respiratory: negative: CTAB, no wheezes, no rales, no ronchi, normal chest expansion, no tachypnea, normal percussion, rales, rhonchi, tachypneic, wheezes Gastrointestinal: negative: soft, non-tender, non-distended, normal bowel sounds , no palpable masses, no hepatomegaly, no splenomegaly, no bruit, no guarding, no rigidity, tender to palpation, distended, diminished bowl sounds, voluntary guarding Hosp A/P (1) AMS (altered mental status) Code(s): R41.82 - ALTERED MENTAL STATUS, UNSPECIFIED Status: Acute (2) Acute on chronic intracranial subdural hematoma Code(s): I62.01 - NONTRAUMATIC ACUTE SUBDURAL HEMORRHAGE; I62.03 - NONTRAUMATIC CHRONIC SUBDURAL HEMORRHAGE Status: Acute (3) Elevated blood sugar Code(s): R73.9 - HYPERGLYCEMIA, UNSPECIFIED Status: Acute (4) Obesity Code(s): E66.9 - OBESITY, UNSPECIFIED Status: Acute (5) Protein C deficiency Code(s): D68.59 - OTHER PRIMARY THROMBOPHILIA Status: Acute - Plan s/p bilateral jonnie hole on 04/05 and drain removal 04/07. per notes no Coumadin until 04/19 pt is on dvt ppx.
[2019-04-11] MEDS: HumaLOG 300 UNITS/3 ML VIAL SC PRN ×3 (06:16→17:35)
--- NOTE | 2019-04-11 07:53 | CT ---
PRELIMINARY REPORT/[facility]/EMERGENCY AFTER HOURS PROCEDURE History: Follow-up subdural hematoma evacuation. CT head without contrast. Comparison: 04/09/2019 and 04/06/2019. Findings: Redemonstration of 4 calvarial jonnie holes from changes of subdural hematoma evacuation. Th ere remains a small amount of acute subdural blood products over the left frontal convexity, unchanged. Persistent scattered foci of pneumocephalus. No mass effect or midline shift. Thornton-white differentiation is maintained. The ventricles are normal in size and appearance. The orbits and paranasal sinuses are unremarkable. The remainder of the calvarium is intact. Scalp soft tissue swelling and staple lines at the jonnie holes. Impression: Postoperative changes as above. Small amount of residual subdural blood products over th e left convexity and scattered pneumocephalus, unchanged. ELECTRONICALLY SIGNED BY: Dom Amato MD Apr 11, 2019 6:33:19 AM WIRE INSULATOR This report is intended for review by the ordering physician only, in accordance of law. If you recei ve this report in error, please call [facility] at [phone]. FINAL REPORT CT Brain WO Con History: Hemorrhage follow-up Comparison: CT brain 2 days prior Findings: Postoperative changes. Impression: Findings and impression are concordant with the preliminary report. Transcribed Date/Time: 04/11/2019 8:16 AM
[2019-04-11] MEDS: Famotidine 20 MG TAB PO SCH ×2 (08:45→20:33)
[2019-04-11] MEDS: Heparin 5,000 UNITS/ML VIAL SC SCH ×2 (08:45→20:34)
[2019-04-11] MEDS: Lisinopril 5 MG TAB PO SCH (08:45)
--- NOTE | 2019-04-11 09:15 | PRG ---
DATE OF SERVICE: 04/11/2019 SUBJECTIVE: The patient is postoperative day #6, status post jonnie hole drainage of her bilateral subdural hematomas. She is doing quite well and has had no overnight events or complaints. This morning, she denies any significant pain or weakness. Her repeat head CT is stable. Yesterday, she was started on 5000 units of heparin b.i.d. for her hypercoagulable state. OBJECTIVE: On exam this morning, she is awake, alert, and oriented x3. Pupils are equal and reactive. She has free active range of motion in all extremities. No focal motor weakness. Her incisions are clean, dry, and intact. ASSESSMENT AND PLAN: We will plan to continue her current heparin dosage. Ana has recommended Hematology consult and we agree with this plan. The patient will continue to be monitored closely on the floor with continued PT, OT, mobilization. Job ID: [id number]
--- NOTE | 2019-04-11 10:57 | PRG ---
DATE OF SERVICE: 04/11/2019 SUBJECTIVE: This morning, she is doing better. No pain. No shortness of breath. OBJECTIVE: VITAL SIGNS: Temperature 98, pulse 61, blood pressure 149/79, sats are 98% on room air. CHEST: No wheezing or crackles. CARDIAC: Normal S1 and S2. No gallops. ABDOMEN: Soft. IMAGING STUDIES: Repeat CT head this morning; postop changes, residual subdural blood products, but stable otherwise. ASSESSMENT: 1. Bilateral subdural evacuation. 2. Hypercoagulable state. PLAN: She was started on heparin 5000 subcu twice a day by Neurology. Hopefully, disposition home in the next several days. Continue PT, supportive care. Job ID: [id number]
--- NOTE | 2019-04-11 15:24 | PDOC.HOSPP ---
- Subjective Subjective: Seen and examined clinically improving on maximal medical and surgical therapy. Sitting up in the chair eating her breakfast. Breathing comfortably on room air. No focal neurologic deficits. Speech is fluent. Anticoagulation deferred to truck driver. - Objective Vital Signs & Weight: Vital Signs (12 hours) Temp Pulse Resp BP BP Pulse Ox 04/11/19 15:09 98.0 F 63 16 128/65 91 L 04/11/19 11:17 97.6 F 63 18 127/67 95 04/11/19 08:45 61 149/79 H 04/11/19 08:00 96 04/11/19 07:44 98.1 F 61 20 149/79 H 96 04/11/19 03:31 97.7 F 60 18 132/78 97 Weight Weight 270 lb 0.002 oz Most Recent Monitor Data Heart Rate from ECG 53 NIBP 138/88 NIBP BP-Mean 104 Respiration from ECG 13 SpO2 99 I&O: 04/10/19 04/11/19 04/12/19 06:59 06:59 06:59 Intake Total 750 1900 Balance 750 1900 Result Diagrams: 04/10/19 05:37 04/10/19 05:37 Additional Labs: Accuchecks 04/11/19 04/10/19 04/10/19 10:27 22:07 15:13 POC Glucose 179 H 207 H 167 H Radiology Reviewed by me: Yes Hospitalist ROS - Review of Systems All other systems reviewed; all pertinent +/- noted in HPI/Subj - Medication Medications: Active Medications Generic Name Dose Route Start Last Admin Trade Name Freq PRN Reason Stop Dose Admin Acetaminophen 650 mg 04/04/19 13:13 04/08/19 20:42 Tylenol PO 650 mg Q4H PRN Administration Headache/Fever/Mild Pain (1-3) Famotidine 20 mg 04/08/19 09:00 04/11/19 08:45 Pepcid PO 20 mg Q12HR JAKE Administration Heparin Sodium (Porcine) 5,000 units 04/10/19 09:00 04/11/19 08:45 Heparin SC 5,000 units BID JAKE Administration Levetiracetam 500 mg/ Device 100 mls @ 200 mls/hr 04/05/19 21:00 04/11/19 08: 46 IVPB 100 mls BID JAKE Administration Insulin Human Lispro 0 units 04/04/19 16:01 04/11/19 12:37 Humalog SC 2 unit .MILD SLIDING SCALE PRN Administration Mild Correctional Scale Insulin Human Lispro 0 units 04/04/19 16:01 04/10/19 22:20 Humalog SC 2 unit .BEDTIME SLIDING SC PRN Administration Bedtime Correctional Scale Lisinopril 5 mg 04/05/19 09:00 04/11/19 08:45 Zestril PO 5 mg DAILY JAKE Administration Sodium Chloride 10 ml 04/08/19 21:00 04/11/19 08:47 Flush - Normal Saline IVF 10 ml Q12HR JAKE Administration - Exam General Appearance: NAD, awake alert Eye: anicteric sclera ENT: normocephalic atraumatic, moist mucosa Neck: supple, symmetric, no lymphadenopathy Heart: RRR, no murmur, no gallops, no rubs Respiratory: CTAB, no wheezes, no rales, normal chest expansion, no tachypnea Gastrointestinal: soft, non-tender, no guarding, no rigidity Extremities: no edema Skin: no rashes Neurological: cranial nerve grossly intact, no focal deficits Neurological - other findings: Cranial incisions healing with shay in place Psychiatric: normal affect, A&O x 3 Hosp A/P (1) Acute on chronic intracranial subdural hematoma Code(s): I62.01 - NONTRAUMATIC ACUTE SUBDURAL HEMORRHAGE; I62.03 - NONTRAUMATIC CHRONIC SUBDURAL HEMORRHAGE Status: Acute (2) AMS (altered mental status) Code(s): R41.82 - ALTERED MENTAL STATUS, UNSPECIFIED Status: Acute (3) Protein C deficiency Code(s): D68.59 - OTHER PRIMARY THROMBOPHILIA Status: Acute (4) Obesity Code(s): E66.9 - OBESITY, UNSPECIFIED Status: Acute (5) Elevated blood sugar Code(s): R73.9 - HYPERGLYCEMIA, UNSPECIFIED Status: Acute - Plan Plan: Medical/ surgical unit Hematology consultation, recommendations appreciated neurosurgery consultation, recommendations appreciated neurology consultation, recommendations appreciated Question is whether there is a role for anticoagulation in this patient or not, defer to Hematology No Coumadin until 04/19/2019 - Per NSG Chronically on Coumadin chronically for protein C deficiency, though this has been discontinued since prior admission No antiplatelet therapy, or nonsteroidal anti-inflammatory drugs in the setting of acute on chronic subdural hematoma S/p bilateral [place] hole on 04/05/2019, tolerated well with significant improvement after surgery Drain removal on 04/07/2019, continues to improve IV antiepileptic drug repeat CT scan of the brain noted LE US Neg for DVT patient confirmed to have diabetes mellitus with hemoglobin A1c of 9.7 insulin sliding-scale coverage for hyperglycemia lipid panel confirms hyperlipidemia elevated LFTs with likely fatty liver disease blood pressure control blood sugar control G.I. prophylaxis DVT prophylaxis
[2019-04-12] MEDS: HumaLOG 300 UNITS/3 ML VIAL SC PRN ×3 (06:16→20:48)
--- NOTE | 2019-04-12 06:51 | PRG ---
DATE OF SERVICE: 04/12/2019 Ms. Liu had an uneventful weekend. She is resting comfortably in her room as I come in this morning. Her vital signs are stable and her neurological examination is as well. Ms. Liu is receiving twice daily subcutaneous injections of unfractionated heparin because it is easily reversed and provides some measure of DVT and venous thrombosis prevention. 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 If she is stable otherwise from the medical perspective, she can be discharged any time. Next Friday, she can restart her Coumadin. I would have tight control with an INR of exactly 2. Job ID: [id number] MTDD
[2019-04-12] MEDS: Heparin 5,000 UNITS/ML VIAL SC SCH ×2 (09:10→20:48)
[2019-04-12] MEDS: Famotidine 20 MG TAB PO SCH ×2 (09:11→20:49)
[2019-04-12] MEDS: Lisinopril 5 MG TAB PO SCH (09:13)
--- NOTE | 2019-04-12 10:55 | PDOC.HOSPP ---
- Subjective Encounter Date: 04/12/19 Encounter Time: 10:53 Subjective: alert, no complaints - Objective Vital Signs & Weight: Vital Signs (12 hours) Temp Pulse Resp BP Pulse Ox 04/12/19 07:26 97.8 F 61 18 141/82 H 98 04/12/19 04:20 98.0 F 61 16 121/65 95 Weight Weight 270 lb 0.002 oz Most Recent Monitor Data Heart Rate from ECG 53 NIBP 138/88 NIBP BP-Mean 104 Respiration from ECG 13 SpO2 99 I&O: 04/11/19 04/12/19 04/13/19 06:59 06:59 06:59 Intake Total 1900 1400 650 Balance 1900 1400 650 Result Diagrams: 04/10/19 05:37 04/10/19 05:37 Additional Labs: Accuchecks 04/12/19 04/12/19 04/11/19 10:47 05:54 21:40 POC Glucose 220 H 182 H 165 H 04/11/19 04/11/19 15:52 06:19 POC Glucose 207 H 163 H Hospitalist ROS - Medication Medications: Active Medications Generic Name Dose Route Start Last Admin Trade Name Freq PRN Reason Stop Dose Admin Acetaminophen 650 mg 04/04/19 13:13 04/08/19 20:42 Tylenol PO 650 mg Q4H PRN Administration Headache/Fever/Mild Pain (1-3) Famotidine 20 mg 04/08/19 09:00 04/12/19 09:11 Pepcid PO 20 mg Q12HR JAKE Administration Heparin Sodium (Porcine) 5,000 units 04/10/19 09:00 04/12/19 09:10 Heparin SC 5,000 units BID JAKE Administration Insulin Human Lispro 0 units 04/04/19 16:01 04/12/19 06:16 Humalog SC 2 unit .MILD SLIDING SCALE PRN Administration Mild Correctional Scale Insulin Human Lispro 0 units 04/04/19 16:01 04/10/19 22:20 Humalog SC 2 unit .BEDTIME SLIDING SC PRN Administration Bedtime Correctional Scale Lisinopril 5 mg 04/05/19 09:00 04/12/19 09:13 Zestril PO 5 mg DAILY JAKE Administration Sodium Chloride 10 ml 04/08/19 21:00 04/12/19 09:14 Flush - Normal Saline IVF 10 ml Q12HR JAKE Administration - Exam General Appearance: awake alert Neck: no JVD Heart: RRR, no murmur Respiratory: CTAB Gastrointestinal: soft, normal bowel sounds Extremities: no edema Hosp A/P (1) Encephalopathy acute Code(s): G93.40 - ENCEPHALOPATHY, UNSPECIFIED Status: Resolved (2) DM type 2 (diabetes mellitus, type 2) Status: Acute Qualifiers: Diabetes mellitus long-term insulin use: without intermediate manager use Diabetes mellitus complication status: with hyperglycemia Qualified Code(s): E11.65 - Type 2 diabetes mellitus with hyperglycemia (3) Chronic anticoagulation Code(s): Z79.01 - DRAWING IN HAND (CURRENT) USE OF ANTICOAGULANTS Status: Chronic (4) Acute on chronic intracranial subdural hematoma Code(s): I62.01 - NONTRAUMATIC ACUTE SUBDURAL HEMORRHAGE; I62.03 - NONTRAUMATIC CHRONIC SUBDURAL HEMORRHAGE Status: Acute (5) Protein C deficiency Code(s): D68.59 - OTHER PRIMARY THROMBOPHILIA Status: Acute - Plan neurologically stable cont heparrin 5000 sq q12h cont diabetic diet
--- NOTE | 2019-04-12 20:26 | PRG ---
DATE OF SERVICE: Nancy Liu is doing well. She has no clinical complaints. She actually looks like "her old self." Her chest CT done over the weekend is essentially unchanged. She is tolerating subcu heparin. I had a long discussion with Dr. Ernst about her problem. She did have protein C and antithrombin-3 levels that were abnormal initially, but with time, her antithrombin-3 level normalized suggesting that this was decreased associated with the acute thrombotic event. It is felt that she predominantly has a protein C deficiency. Her daughter also has a protein C deficiency. We will continue with DVT prophylaxis until the point at which Neurosurgery feels safely to fully anticoagulate her again. She could be treated with prophylactic dose Eliquis at home 2.5 mg twice a day, Lovenox 40 mg once a day or continue with heparin subcu for prophylaxis. I am not sure that there is really a difference in the 3 other than that the heparin is more readily reversible if there is a problem. She is clinically stable. Job ID: [id number]
[2019-04-12] MEDS: levETIRAcetam 500 MG TAB PO SCH (20:48)
[2019-04-13] MEDS: HumaLOG 300 UNITS/3 ML VIAL SC PRN (05:47)
--- NOTE | 2019-04-13 07:10 | PRG ---
DATE OF SERVICE: 04/13/2019 Ms. Liu is 8 days out from jonnie hole evacuation of subdural hematoma. She is doing well with subcu heparin, unfractionated, twice daily. Her vitals and neurological examination have remained stable this last week. Ms. Liu is ready for discharge so long as she can administer her heparin on her own. I will see her next Friday or next Friday with a CT scan of the head and staple removal. We will follow that scan up with another scan 1 month later after she is on Coumadin to make sure the subdural does not come back. These arrangements will be made through our office. She is safe for discharge from my point of view. Job ID: [id number]
[2019-04-13] MEDS: levETIRAcetam 500 MG TAB PO SCH (08:09)
[2019-04-13] MEDS: Heparin 5,000 UNITS/ML VIAL SC SCH (08:09)
[2019-04-13] MEDS: Lisinopril 5 MG TAB PO SCH (08:10)
[2019-04-13] MEDS: Famotidine 20 MG TAB PO SCH (08:10)
[2019-04-13 08:43] VITALS: BP 124/77; TEMP 98.1
--- NOTE | 2019-04-13 09:42 | DIS ---
DATE OF ADMISSION: 04/04/2019 DATE OF DISCHARGE: 04/13/2019 PRIMARY CARE PROVIDER: Dr. Jeremie Gaffney. DISPOSITION: Discharged home. FINAL DIAGNOSES: Nontraumatic acute subdural hematoma; encephalopathy, resolved; diabetes mellitus type 2; protein-C deficiency. DISCHARGE MEDICATIONS: 1. Lovenox 5000 units subcu twice a day for 30 days. 2. Metformin 850 mg p.o. b.i.d. DISCHARGE DIET: Diabetic. ALLERGIES: NONE. PENDING AT TIME OF DISCHARGE: Nothing. CODE STATUS: Full. HOSPITAL COURSE: The patient admitted to the [facility] through [facility]. CONSULTATIONS: Dr. Samm Gifford, Neurosurgery; Dr. Hernando Stafford, Pulmonology. PROCEDURES: On 04/05/2019, bilateral jonnie hole evacuation of subdural hematoma with subdural drains. The patient admitted to the emergency room. History of protein-C deficiency, on chronic Coumadin therapy. Recently seen with a small subdural hematoma. She came back and confused, was found to have enlarged subdural hematoma. Her Coumadin had been stopped. Neurosurgery took her to the operating room where the hematoma was evacuated. Initial CT 04/04/2019 revealed interval development of new acute subdural hematoma bilaterally with midline shift. Postop CT revealed incomplete evacuation. The patient's pro-time was INR of 1.1. CBC was normal. Chemistries were normal except for an elevated blood sugar. Hemoglobin A1c was 9.7. Blood sugars were in the 200 to 300 range. The patient eventually had the drains removed. Most recent CT reveals small residual subdural blood products over the left convexity. The patient has been approved for discharge by Neurosurgery and discussed the case with Dr. Gaffney, PCP. She is being discharged on prophylactic heparin 5000 units subcu twice a day for protein-C deficiency. She has also been started on metformin 850 mg twice a day for her type 2 diabetes acute onset. She is on a diabetic diet. She will follow up in a few days with Dr. Gifford for repeat CT, removal of shay. She will follow up with the one month, Dr. Gaffney. At that time, she will be likely changed from subcu heparin to an oral anticoagulant. Blood sugar and diabetes to be monitored in the future per Dr. Gaffney. Condition at the time of discharge is well, alert, oriented, cooperative. Vital signs are stable. Job ID: [id number]
--- NOTE | 2019-04-15 00:02 | PQF ---
BOBBY RODRIGUEZ, SULLY Victor MD [id number] CLINICAL DOCUMENTATION CLARIFICATION FORM: POST DISCHARGE Addendum to original discharge summary date: ____ Late entry note date: __ DATE: 04/14/2019 ATTN: Dr Reyes, [place] Please exercise your independent, professional judgment in responding to the clarification form. Clinical indicators are provided on the bottom of this form for your review Please check appropriate box(s): [ ] Acute Metabolic Encephalopathy [ x ] Acute Toxic Encephalopathy [ ] Other diagnosis [ ] Unable to determine In addition, please specify: Present on Admission (POA): [ x] Yes [ ] No [ ] Unable to determine For continuity of documentation, please document condition throughout progress notes and discharge summary. Thank You. CLINICAL INDICATORS - SIGNS / SYMPTOMS / LABS Brain CT p1 03/31 Impression; Interval development of newacute subdural hematomas bilaterally, in the setting of previously noted bilateral subdural hygromas with 7mm midline shift of the left Hospitalist H&P p1 03/31 Dr Perez on chronic coumadin therapy and recently diagnosed with subdral hemorrhage presents with altered mental status Hospitalist H&P p1 03/31 Dr Perez When pt was at home she was acting not herself with confusion she did not know who she was Hospitalist H&P p4 03/31 Dr Perez Elevated blood sugar RISK FACTORS Hospitalist H&P p2 03/31 Protein C deficiency chronically on coumadin Hospitalist H&P p2 03/31 Acute on Chronic subdural hematoma Hospitalist H&P p2 03/31 Obesity Operative report p1 04/05 Bilateral subdural hematomas, subacute on chronic with mass effect TREATMENTS: Neurology consult 03/31 Marlon Santana Hospitalist H&P p4 03/31 Insulin sliding-scale coverage for hyperglycemia Hospitalist H&P p4 03/31 Blood pressure control Hospitalist H&P p4 03/31 Blood glucose control Operative report 04/05 Evacuation of Subdural Hematoma (This form is maintained as a part of the permanent medical record) 2014 [employer]. All Rights Reserved [email or web address] [not provided] MTDD
--- NOTE | 2019-04-15 00:03 | PQF ---
BOBBY RODRIGUEZ, SULLY Victor MD [id number] U-[id number] [id number] CLINICAL DOCUMENTATION CLARIFICATION FORM: POST DISCHARGE Addendum to original discharge summary date: ____ Late entry note date: __ DATE: 04/14/2019 ATTN: Dr Reyes, [place] Please exercise your independent, professional judgment in responding to the clarification form. Clinical indicators are provided on the bottom of this form for your review Please check appropriate box(s): [ ] Cerebral edema / Vasogenic edema [ x ] Compression of brain [ ] Other diagnosis [ ] Unable to determine In addition, please specify: Present on Admission (POA): [ x ] Yes [ ] No [ ] Unable to determine For continuity of documentation, please document condition throughout progress notes and discharge summary. Thank You. CLINICAL INDICATORS - SIGNS / SYMPTOMS / LABS Brain CT p1 03/31 Impression; Interval development of newacute subdural hematomas bilaterally, in the setting of previously noted bilateral subdural hygromas with 7mm midline shift of the left Hospitalist H&P p1 03/31 Dr Perez on chronic coumadin therapy and recently diagnosed with subdral hemorrhage presents with altered mental status Hospitalist H&P p1 03/31 Dr Perez When pt was at home she was acting not herself with confusion she did not know who she was Hospitalist H&P p4 03/31 Dr Perez Elevated blood sugar RISK FACTORS Hospitalist H&P p2 03/31 Protein C deficiency chronically on coumadin Hospitalist H&P p2 03/31 Acute on Chronic subdural hematoma Hospitalist H&P p2 03/31 Obesity Operative report p1 04/05 Bilateral subdural hematomas, subacute on chronic with mass effect TREATMENTS: Neurology consult 03/31 Marlon Santana Hospitalist H&P p4 03/31 Insulin sliding-scale coverage for hyperglycemia Hospitalist H&P p4 03/31 Blood pressure control Hospitalist H&P p4 03/31 Blood glucose control Operative report 04/05 Evacuation of Subdural Hematoma (This form is maintained as a part of the permanent medical record) 2014 [employer]. All Rights Reserved [email or web address] [not provided] MTDD
== END 2019-04-13 12:00 | disposition home or self-care (01) | DRG 25 ==
LOC: ERS 10:55 → IMCU/EMU 13:36 → CCU 04-05 09:42 → SURG B 04-08 16:11
PROVIDERS: ADMIT Internal Medicine; ATTEND Internal Medicine
PROC: 00C Central Nervous System and Cranial Nerves, Extirpation (ICD-10-PCS; principal; 2019-04-05)
DX: I62.01 Nontraumatic acute subdural hemorrhage (principal); G93.5 Compression of brain; G92 Toxic encephalopathy; D68.59 Other primary thrombophilia; Z68.41 Body mass index [BMI] 40.0-44.9, adult; G93.40 Encephalopathy, unspecified; E66.9 Obesity, unspecified; E78.5 Hyperlipidemia, unspecified; R73.9 Hyperglycemia, unspecified; R40.2362 Coma scale, best motor response, obeys commands, at arrival to emergency department; R40.2142 Coma scale, eyes open, spontaneous, at arrival to emergency department; R40.2252 Coma scale, best verbal response, oriented, at arrival to emergency department; Z79.899 Other long term (current) drug therapy; Z79.01 Long term (current) use of anticoagulants
CPT/HCPCS: 36415; 36416; 70450; 70544; 80048; 80053; 80061; 80306; 80307; 83036; 84443; 85025; 85610; 85730; 93970; J0690; J1100; J1644; J1953; J2001; J2150; J2405; J2704; J3010; J3490; S0028

== ENCOUNTER 2019-04-19 13:29 | Outpatient (CLI) | payer OTHER ==
--- NOTE | 2019-04-19 14:00 | CT ---
CT of thehead: 04/19/2019 COMPARISON:04/11/2019 HISTORY:Subdural hematoma status post evacuation TECHNIQUE: Serial axial CT imaging at5 mm from thevertex through the skull base without contrast. Findings:The imaged paranasal sinuses and mastoid air cells are well-aerated. No displaced calvarial fracture. Two Lisest holes are noted at the level of the vertex bilaterally. Cutaneous shay are seen superiorl y as well bilaterally. The small volume pneumocephalus present on the prior examination anteriorly has resolved. Small volum e subdural blood noted anteriorly on the left has nearly completely resolved with minimal residual subdural blood in the left frontal region on axial image 16. No new intracranial hemorrhage. Impression:Status post surgical treatment of bilateral subdural hematoma. No acute hemorrhage is evid ent on this examination. Minimal residual hemorrhage in the left frontal subdural space has continued to decrease in size.
== END 2019-04-19 13:30 | disposition home or self-care (01) ==
LOC: BICCT 13:29
PROVIDERS: ATTEND Neurological Surgery
DX: I62.00 Nontraumatic subdural hemorrhage, unspecified (principal); I26.99 Other pulmonary embolism without acute cor pulmonale; Z98.890 Other specified postprocedural states
CPT/HCPCS: 70450

== ENCOUNTER 2019-05-31 10:22 | Outpatient (CLI) | payer OTHER ==
--- NOTE | 2019-05-31 10:54 | CT ---
Head CT without contrast 05/31/2019: COMPARISON: 04/19/2019 HISTORY: Reevaluate subdural hematoma, history of surgical evacuation TECHNIQUE: Axial CT imaging at 5 mm intervals from vertex through skull base without contrast FINDINGS: 4 postoperative jonnie holes are noted at the vertex. No acute hemorrhage. Minimal subdural b lood in the left frontal region noted on the prior examination has resolved. No intracranial hemorrhage is apparent on this examination. The visualized paranasal sinuses/mastoid air cells are well-aerated. No displaced calvarial fracture is noted. IMPRESSION: Status post surgical evacuation of bilateral subdural hematoma. No evidence for acute hem orrhage.
== END 2019-05-31 10:23 | disposition home or self-care (01) ==
LOC: BICCT 10:22
PROVIDERS: ATTEND Neurological Surgery
DX: I62.01 Nontraumatic acute subdural hemorrhage (principal); Z98.890 Other specified postprocedural states
CPT/HCPCS: 70450

== ENCOUNTER 2019-08-10 12:55 | Outpatient (CLI) | payer OTHER ==
--- NOTE | 2019-08-10 13:33 | MMO ---
Bilateral MAMMO Bilat Screen [facility]. CLINICAL HISTORY: Patient is 58 years old and is seen for screening. The patient has no family history of breast cancer. The patient has no personal history of cancer. VIEWS: The views performed were: bilateral craniocaudal with tomosynthesis and bilateral mediolateral oblique with tomosynthesis. FILMS COMPARED: The present examination has been compared to prior imaging studies performed at [facility] on 04/27/2018, and at [facility] on 03/16/2015, 03/20/2016 and 04/01/2017. This study has been interpreted with the assistance of computer-aided detection. MAMMOGRAM FINDINGS: There are scattered fibroglandular densities. There are stable benign appearing calcifications seen in both breasts. Nodularity is stable. There are no suspicious masses, suspicious calcifications, or new areas of architectural distortion. IMPRESSION: THERE IS NO MAMMOGRAPHIC EVIDENCE OF MALIGNANCY. A ROUTINE FOLLOW-UP MAMMOGRAM IN 1 YEAR IS RECOMMENDED. THE RESULTS OF THIS EXAM WERE SENT TO THE PATIENT. ACR BI-RADS Category 2 - Benign finding MAMMOGRAPHY NOTE: 1. A negative mammogram report should not delay a biopsy if a dominant of clinically suspicious mass is present. 2. Approximately 10% to 15% of breast cancers are not detected by mammography. 3. Adenosis and dense breasts may obscure an underlying neoplasm. Reported by: MIKO PALACIO MD Electonically Signed: [id number]
== END 2019-08-10 12:56 | disposition home or self-care (01) ==
LOC: BICMAMMO 12:55
PROVIDERS: ATTEND Obstetrics & Gynecology
DX: Z12.31 Encounter for screening mammogram for malignant neoplasm of breast (principal)
CPT/HCPCS: 77063; 77067

== ENCOUNTER 2020-08-09 13:21 | Outpatient (CLI) | payer OTHER | END 2020-08-09 13:22 | disposition home or self-care (01) | LOC: BICMAMMO 13:21 | PROVIDERS: ATTEND Obstetrics & Gynecology | DX: Z12.31 Encounter for screening mammogram for malignant neoplasm of breast (principal) | CPT/HCPCS: 77063; 77067 ==

== ENCOUNTER 2021-01-10 17:00 | Outpatient (CLI) | payer OTHER | END 2021-01-10 17:01 | disposition home or self-care (01) | LOC: SLEEPLAB 17:00 | PROVIDERS: ATTEND Internal Medicine Critical Care Medicine | DX: G47.33 Obstructive sleep apnea (adult) (pediatric) (principal); R06.83 Snoring; G47.00 Insomnia, unspecified | CPT/HCPCS: 95806 ==

== ENCOUNTER 2021-08-15 07:44 | Outpatient (CLI) | payer BC | END 2021-08-15 07:45 | disposition home or self-care (01) | LOC: BICMAMMO 07:44 | PROVIDERS: ATTEND Obstetrics & Gynecology | DX: Z12.31 Encounter for screening mammogram for malignant neoplasm of breast (principal) | CPT/HCPCS: 77063; 77067 ==

== ENCOUNTER 2022-10-25 08:06 | Outpatient (CLI) | payer BC | END 2022-10-25 08:07 | disposition home or self-care (01) | LOC: BICMAMMO 08:06 | PROVIDERS: ATTEND Obstetrics & Gynecology | DX: N60.11 Diffuse cystic mastopathy of right breast (principal) | CPT/HCPCS: G0279 ==